=== PATIENT | female | born 1970 | race Caucasian/White ===

== ENCOUNTER 2025-05-13 21:26 | Emergency (ER) | payer OTHER, SELFPAY ==
--- OUTSIDE RECORDS SUMMARY | 2025-05-13 21:29 | XMS_ITS | Clinical Summary ---
Author Organization [facility] Address [address] [place] [address] Care Team Providers Care Vp Research Name Role Phone Luisa Villeda Primary Care Provider [phone] Allergies Active Allergy Reactions Criticality Noted Date Comments Gabapentin Other (see comment) Low 07/27/2018 Weight gain Weight gain Pregabalin Other (see comment) Low 07/27/2018 Weight gain Weight gain Medications ondansetron 4 MG disintegrating tablet Take 1 tablet (4 mg total) by mouth every 8 (eight) hours as needed for Nausea. 20 tablet 10/16/19 Active Additional Information Patient not taking.Reported on 11/05/2021 HYDROcodone-acetam inophen 5-325 MG tabletIndications: Acute Pain < 7 Day Supply Take 1 tablet by mouth every 4 (four) hours as needed. Indications: Acute Pain < 7 Day Supply 20 tablet 10/16/19 22 Active Additional Information Patient not taking.Reported on 11/05/2021 SYMBICORT 160-4.5 MCG/ACT inhaler Inhale 2 puffs into the lungs 2 (two) times a day. 10/08/19 22 Active albuterol sulfate HFA 108 (90 Base) MCG/ACT inhaler Inhale 2 puffs into the lungs every 4 (four) hours as needed for Wheezing or Shortness of breath. 07/08/19 22 Active DULoxetine 60 MG capsule Take 60 mg by mouth 2 (two) times daily. 09/03/19 Active cetirizine 10 MG tablet Take 10 mg by mouth daily. 10/11/19 22 Active simvastatin 40 MG tablet Take 40 mg by mouth nightly. 10/08/19 Active losartan 100 MG tablet Take 100 mg by mouth daily. 09/03/19 Active omeprazole 20 MG capsule Take 20 mg by mouth daily. Active vitamin D3, cholecalciferol, 1000 UNIT Tab tablet Take 1,000 Units by mouth daily. Active fish oil 1000 MG Cap capsule Take 1,000 mg by mouth daily. Active Active Problems Problem Noted Date Diagnosed Date Diverticulitis 11/05/2021 Family History Medical History Relation Comments Heart Disease Mother Hypertension Mother Lupus Mother Relation Status Comments Brother 1 Alive Brother 2 Alive Daughter 1 Alive Daughter 2 Alive Father Mother Alive Son Alive Social History Tobacco Use Types Packs/Day Years Used Date Smoking Tobacco: Heavy Smoker Cigarettes Smokeless Tobacco: Current Alcohol Use Standard Drinks/Week Comments Not Currently 0 (1 standard drink = 0.6 oz pur e alcohol) Comments No Sex and Gender Information Value Date Recorded Sex Assigned at Not on file Legal Sex Female 7:15 PM CDT Gender Identity Not on file Sexual Orientation Not on file Last Filed Vital Signs Vital Sign Reading Time Taken Comments Blood Pressure 119/82 11/07/2021 3:19 PM CDT Pulse 97 11/07/2021 3:19 PM CDT Temperature 36.7 C (98.1 F) 11/07/2021 3:19 PM CDT Respiratory Rate 18 11/07/2021 3:19 PM CDT Oxygen Saturation 98% 11/07/2021 3:19 PM CDT Inhaled Oxygen Concentration - - Weight 111.9 kg (246 lb 11.1 oz) 11/07/2021 5:09 AM CDT Height 165.1 cm (5' 5) 11/05/2021 2:09 AM CDT Body Mass Index 41.05 11/05/2021 2:09 AM CDT Plan of Treatment Health Maintenance Due Date Last Done Comments Colorectal Cancer Screening Colonoscopy (10 Years) 1970 Annual Physical 1973 Hepatitis C 1988 Hepatitis B Vaccines (1 of 3 - 19+ 3-dose series) 1989 Mammogram Screening 2010 Pneumococcal Vaccine: 50+ Years (2 of 2 - PCV) 11/29/2017 11/29/2016 Zoster Vaccines (1 of 2) 2020 COVID-19 Vaccine (2 - season) 2025 03/20/2021 Influenza Adult (#1) 2025 04/27/2019, 06/02/2018, 04/03/2016, Additional history exists DTaP, Tdap and Td Vaccines (2 - Td or Tdap) 04/27/2029 04/27/2019 Hepatitis A Vaccines Aged Out No long er eligible based on patient's age to complete this topic Meningococcal B Vaccine Aged Out No l onger eligible based on patient's age to complete this topic Meningococcal Vaccine Aged Out No sharon nita eligible based on patient's age to complete this topic RSV Immunizations Under 20 Months Aged Out No longer eligible based on patient's age to complete this topic Goals Goal Patient Goal Type Associated Problems Recent Progress Patient-Stated? Author Health - patient able to perform ADLs independently General No Laura Bates, RN Insurance [place] Advance Directives * Full Code (Latest Code Status on File) Date Activated Date Inactivated Comments 11/05/2021 5:23 AM 11/07/2021 8:28 PM Care Teams Vp Research Relationship Specialty Start Date End Date Luisa Villeda PA [address] [place] [address] PCP - General PHYSICIAN CLINICAL SOCIAL WORK AIDE 10/15/21
--- OUTSIDE RECORDS SUMMARY | 2025-05-13 21:29 | XMS_ITS | Encounter Summary ---
Author Organization [facility] Address [address] [place] [address] Care Team Providers Care Bridge Rigger Name Role Phone Luisa Villeda Primary Care Provider [phone] Daniel العراقي MD Unavailable [phone] Rafael Haynes MD Unavailable Encounter Details Date Type Department Care Team (Late st Contact Info) Description 04/10/2025 Results Follow-Up [facility] Family Medicine [address] [place] [address] Luisa Villeda PA [address] [place] [address] Uric acid, XR Chest Pa Lateral 2 Views Social History Tobacco Use Types Packs/Day Years Used Date Smoking Tobacco: Some Days Cigarettes 0.5 30 Smokeless Tobacco: Never Comments:Started smoking at age 13 1-2 currently heaviest ppd hx one pack Alcohol Use Standard Drinks/Week Comments Never 0 (1 standard drink = 0.6 oz pur e alcohol) [facility] Utilities Answer Date Recorded In the past 12 months has [employer], gas, oil, or water company threatened to shut off services in your home? No 12/20/2023 Social Connection and Isolation Panel Answer Date Recorded In a typical week, how many times do you talk on the phone with family, friends, or neighbors? More than three times a week 12/20/2023 How often do you get togethe r with friends or relatives? More than three times a week 12/20/2023 How often do you attend chur ch or holiness services? Never 12/20/2023 Do you belong to any clubs o r organizations such as moravian groups, unions, fraternal or athletic groups, or school groups? No 12/20/2023 How often do you attend meet ings of the clubs or organizations you belong to? Never 12/20/2023 Are you , , di vorced, , never , or living with a partner? Never 12/20/2023 Overall Financial Resource Strain (CARDIA) Answe r Date Recorded How hard is it for you to pa y for the very basics like food, housing, medical care, and heating? Not hard at all 12/20/2023 PHQ-2 Answer Date Recorded PHQ-2 Total Score (If total score is 3 or more points, staff should administer the PHQ-9) 0 04/05/2025 Hunger Vital Sign Answer Date Recorded Within the past 12 months, y ou worried that your food would run out before you got the money to buy more. Never true 12/20/19 24 Within the past 12 months, t he food you bought just didn't last and you didn't have money to get more. Never true 12/20/2023 PRAPARE - Transportation Answer Date Re corded In the past 12 months, has l ack of transportation kept you from medical appointments or from getting medications? No 12/03 In the past 12 months, has l ack of transportation kept you from meetings, work, or from getting things needed for daily living? No 12/20/2023 Housing Stability Vital Sign Answer Aubrey e Recorded In the last 12 months, was t here a time when you were not able to pay the mortgage or rent on time? No 08/27/2022 Number of Places Lived in the Last Year Not on f ile 08/27/2022 In the last 12 months, was t here a time when you did not have a steady place to sleep or slept in a nursing home (including now)? No 08/27/2022 PHQ-9 Answer Date Recorded PHQ-9 Total Score 17 12/27/2023 Housing Stability Vital Sign Answer Aubrey e Recorded In the last 12 months, was t here a time when you were not able to pay the mortgage or rent on time? No 12/20/2023 In the past 12 months, how m any times have you moved where you were living? 0 12/20/2023 At any time in the past 12 m [facility], were you homeless or living in a nursing home (including now)? No 12/20/2023 AUDIT-C Answer Date Recorded Q1: How often do you have a drink containing alcohol? Never 04/10/2025 Q2: How many drinks containi ng alcohol do you have on a typical day when you are drinking? Patient does not drink Q3: How often do you have si x or more drinks on one occasion? Never 04/10/2025 Personal Safety Answer Date Recorded Have you ever been in or are you currently in a harmful physical or emotional relationship or is someone making you feel afraid or unsafe? Denies 03/29/2025 Comments No Sex and Gender Information Value Date Recorded Sex Assigned at Not on file Legal Sex Female 2:19 AM TELEHEALTH NURSE Gender Identity Not on file Sexual Orientation Not on file documented as of this encounter Functional Status * Pina Fall Risk Question Answer Date of Assessment Author History of Falling 0 04/10/2025 10:58 AM CD T Hilda Godoy RN Secondary Diagnosis 15 04/10/2025 10:58 AM Hilda Cheung, mcat instructor Aids 0 04/10/2025 10:58 AM Hilda Garcia RN Intravenous Therapy/Heparin/Saline Lock 0 04/10/2025 10:58 AM Hilda Toscano RN Gait/Transferring 0 04/10/2025 10:58 AM Hilda Toscano RN Mental Status 0 04/10/2025 10:58 AM CDT Hilda Cervantes RN Pina Fall Risk Score (Score >= 45 places fall precaution order) 15 04/10/2025 10:58 AM Hilda Toscano RN Prior Fall Event (Autopopulated from EMR) None found 04/10/2025 10:58 AM RODRIGUEZT Dave Godoy RN * AUDIT-C Score Answer Date of Assessment Author 0 04/10/2025 11:15 AM CDT Meurer, Hilda B., RN * Alcohol Use Question Answer Date of Assessment Author Q1: How often do you have a drink containing alcohol? Never 04/10/2025 11:15 AM CDT Hilda Godoy, DAIJA Q2: How many drinks containing alcohol do you have on a typical day when you are drinking? Patient does not drink 04/10/2025 11:15 AM RODRIGUEZT Hilda Godoy, DAIJA Q3: How often do you have six or more drinks on one occasion? Never 04/10/2025 11:15 AM CDT Hilda Godoy, DAIJA documented as of this encounter Plan of Treatment Upcoming Encounters Date Type Department Care Team (Late st Contact Info) Description 06/05/2025 8:00 AM TELEHEALTH NURSE Hospital Encounter [facility] [address] [place] [id number] Paula Lugo MD [address] [place] [address] [phone] 06/05/2025 8:00 AM TELEHEALTH NURSE - 06/05/2025 8:30 AM TELEHEALTH NURSE Surgery [facility] [address] [place] [id number] Paula Lugo MD [address] [place] [address] [phone] COLONOSCOPY Scheduled Procedures Name Priority Associated Diagnoses Date/Ti me COLONOSCOPY hx of polyps 06/05/2025 8:00 AM TELEHEALTH NURSE documented as of this encounter Visit Diagnoses Not on filedocumented in this encounter Care Teams Bridge Rigger Relationship Specialty Start Date End Date Luisa Villeda PA [address] [place] [address] PCP - General Internal Medicine 07/08/21 Daniel العراقي MD [address] [place] [id number] Consulting Physician General Surgery 04/17/25 [place] [address] [place] [id number] Referring Physician Cardiology 04/18/25 documented as of this encounter
--- OUTSIDE RECORDS SUMMARY | 2025-05-13 21:29 | XMS_ITS | Clinical Summary ---
Author Organization [facility] Address [address] [place] [address] Phone Care Team Providers Care Senior Oracle Applications Developer Name Role Phone GarthNaomi APRN, JAMILAH Primary Care Provider Allergies Active Allergy Reactions Criticality Noted Date Comments Gabapentin Other (see Comments) 07/27/2018 Weight gain Pregabalin Other (see Comments) 07/27/2018 Weight gain Penicillins Unknown 05/16/2016 Medications simvastatin (ZOCOR) 20 MG Tablet Take 20 mg by mouth every evening. Active hyoscyamine (LEVSIN) 0.125 MG Tablet Take 1 Tab by mouth every 4 hours as needed for Cramping. 60 Tab 2 7 Active omeprazole (PRILOSEC) 20 MG CAPSULE DELAYED RELEASE Take 1 Cap by mouth daily. 90 Cap 7 Active albuterol (ACCUNEB) 0.63 MG/3ML Nebulizer Soln 0.63 mg by Nebulization route every 4 hours as needed for Wheezing. Active cetirizine (ZYRTEC) 10 MG Tablet Take 10 mg by mouth daily. Active Albuterol Sulfate (VENTOLIN HFA IN) take by inhalation every 4 hours as needed. Active Acetaminophen (TYLENOL PO) Take 500 mg by mouth every 4 hours as needed. Active DULOXETINE HCL PO Take 90 mg by mouth daily. Active traMADol (ULTRAM) 50 MG Tablet Take 1 Tab by mouth 2 times daily as needed for Moderate or more severe pain. 30 Tab 9 Active BuPROPion HCl 200 MG TABLET SR 12 HR Take 200 mg by mouth daily. Active losartan (COZAAR) 100 MG Tablet Take 100 mg by mouth every morning. Active acyclovir (ZOVIRAX) 800 MG Tablet Take 800 mg by mouth daily. Active Active Problems Problem Noted Date Diagnosed Date Sacroiliac joint dysfunction of both sides 03/09 Moderate episode of recurrent major depressive d isorder 09/01/2018 Sacroiliac joint dysfunction of right side 07/27 Diverticulitis of colon 12/01/2016 Depression 11/28/2016 Metabolic acidosis, increased anion gap 11/29/19 17 Benign essential HTN 11/28/2016 Familial hypercholesterolemia 11/28/2016 Diverticulitis of large inte jef without perforation or abscess without bleeding 11/28/2016 Immunizations Immunization Administration Dates Next Due Pneumococcal Vaccine Adult - 23 Valent 7 Family History Medical History Relation Name Comments Cancer Brother bone No Known Problems Father Cancer Maternal Aunt breast Kidney Stones Maternal Uncle Heart Disease Mother Relation Name Status Comments Brother Father Maternal Aunt Maternal Uncle Mother Alive Social History Tobacco Use Types Packs/Day Years Used Date Smoking Tobacco: Every Day Cigarettes 1 30 Smokeless Tobacco: Never Tobacco Cessation:Ready to Q uit: No; Counseling Given: Yes Alcohol Use Standard Drinks/Week Comments No 0 (1 standard drink = 0.6 oz pur e alcohol) Sexually Active Control Partners Comments Never Comments No Sex and Gender Information Value Date Recorded Sex Assigned at Not on file Legal Sex Female 8:50 PM CDT Gender Identity Not on file Sexual Orientation Not on file Last Filed Vital Signs Vital Sign Reading Time Taken Comments Blood Pressure 107/67 12/18/2020 9:27 AM CDT Pulse 86 12/18/2020 9:27 AM CDT Temperature 36 C (96.8 F) 12/18/2020 9:27 AM CDT Respiratory Rate 18 12/18/2020 9:27 AM CDT Oxygen Saturation 97% 12/18/2020 9:27 AM CDT Inhaled Oxygen Concentration - - Weight 108.9 kg (240 lb) 12/06/2020 1:00 PM CDT Height 166.4 cm (5' 5.5) 12/06/2020 1:00 PM CDT Body Mass Index 39.33 12/06/2020 1:00 PM CDT Plan of Treatment Health Maintenance Due Date Last Done Comments Hepatitis C Virus (HCV) Screening 1970 Hepatitis B Immunization (1 of 3 - 19+ 3-dose series) 1989 Cologuard 2015 Immunochemical Fecal Occult Blood 2015 Pneumococcal Immunization (50+ years) (2 of 2 - PCV) 11/29/2017 11/29/2016 Zoster Immunization (1 of 2) 2020 Colonoscopy 12/19/2023 12/18/2020, 07/07/2017 Colorectal Cancer Screening 12/19/2023 Influenza Immunization (#1) 03/05/202504/05, 06/02/2018, 04/03/2016, Additional history exists SARS-COV-2 Immunization (2 - 2024- season) 2025 03/20/2021 Respiratory Syncytial Virus (RSV) Immunization (Adult) (1 - 1-dose 75+ series) 2045 Pneumococcal Immunization Combined Discontinued 11/29/2016 DTaP/Tdap/Td Immunization Discontinued 04/27/2019 TdaP Immunization Completed 04/27/2019 Human Papillomavirus (HPV) Immunization Aged Out No longer eligible based on patient's age to complete this topic Meningococcal Immunization (ACWY) Aged Out No longer eligible based on patient's age to complete this topic Rotavirus Immunization Aged Out No lo nger eligible based on patient's age to complete this topic Medical Devices Implanted Type Area Svp Group Director Device Identifier Shelf Expiration Date Model / Serial / Lot Clip 235cm 11mm 360 Resolution Radiopaque - [id number] Implanted:Qty: 3 on 12/18/2020 by Ajit Wang DO at [facility] IMPLANT [employer] 08/30/2023 [id number] / [id number] / [id number] Insurance MEDICAID [employer] Advance Directives * Full Code (Latest Code Status on File) Date Activated Date Inactivated Comments 11/28/2016 10:05 AM 11/29/2016 1:51 PM CPR-Full Tr eatment: FULL ARREST: Attempt Resuscitation/CPR wit intubation and mechanical ventilation. PRE-ARREST: Use entire range of life support measures to stabilize the patient. Care Teams Senior Oracle Applications Developer Relationship Specialty Start Date End Date Naomi Liang APRN, RETAIL CUSTOMER SERVICE REPRESENTATIVE [address] [place] [address] PCP - General Advanced Practice Nurse 12/15/20
--- OUTSIDE RECORDS SUMMARY | 2025-05-13 21:29 | XMS_ITS | Clinical Summary ---
Author Organization [facility] Address [address] [place] [address] Care Team Providers Care Tubing Supervisor Name Role Phone Luisa Villeda Primary Care Provider [phone] Daniel العراقي MD Unavailable [phone] Rafael Haynes MD Unavailable Allergies Active Allergy Reactions Criticality Noted Date Comments Gabapentin Other (See comments) Low 07/27/2018 Weight Gain Penicillins Unknown Low 05/16/2016 Allergy as a child. Unknown reaction. Has taken Penicillin as an adult and tolerated well. Pregabalin Other (See comments) Low 07/27/2018 Weight Gain Medications albuterol HFA (PROVENTIL HFA,VENTOLIN HFA,PROAIR HFA) 90 mcg/actuation inhaler Inhale 2 puffs every 4 (four) hours as needed for wheezing 1 each 3 01/17/20 22 Active nitroglycerin (NITROSTAT) 0.4 mg SL tabletIndicatio ns:acute episode of anginal pain Place 1 tablet (0.4 mg total) under the tongue every 5 (five) minutes as needed for chest pain May repeat dose q 5 min, up to 3 doses total 30 tablet 05/05/20 22 Active ondansetron (ZOFRAN) 4 mg tablet Take 1 tablet (4 mg total) by mouth every 8 (eight) hours as needed for nausea or vomiting 20 tablet 09/13/19 25 Active cetirizine (ZyrTEC) 10 mg tablet Take 1 tablet (10 mg total) by mouth daily 100 tablet 1 09/13/19 25 Active magnesium gluconate (MAGONATE) 500 mg (27 mg elemental) tablet Take 1 tablet (500 mg total) by mouth daily 90 tablet 1 09/13/19 25 Active Additional Information Patient taking differently:500 mg oral2 times daily, Informant: Self, Reported on 05/09/2025 metoprolol XL (TOPROL-XL) 50 mg extended release tabletIndicatio ns:Benign essential HTN TAKE 1 TABLET(50 MG) BY MOUTH DAILY 90 tablet 1 12/12/19 25 Active nicotine (NICODERM CQ) [address] 1 patch on the skin daily for 24 hours 28 patch 1 12/26/[address] (PROTONIX) 40 mg EC tabletIndicatio ns:Gastroesopha geal reflux disease without esophagitis Take 1 tablet (40 mg total) by mouth daily 90 tablet 1 03/19/[address] (CYMBALTA) 60 mg capsule Take 2 capsules (120 mg total) by mouth daily Active ezetimibe (ZETIA) 10 mg tablet Take 1 tablet (10 mg total) by mouth daily Active fluticasone propionate (FLONASE) 50 mcg/actuation nasal spray Administer 2 sprays into each nostril daily Active valACYclovir (VALTREX) 1 gram tablet Take 1 tablet (1,000 mg total) by mouth daily Active aspirin 81 mg chewable tabletIndicatio ns:Benign essential HTN CHEW AND SWALLOW 1 TABLET(81 MG) BY MOUTH DAILY 90 tablet 1 04/13/20 25 Active oxyCODONE-aceta minophen (PERCOCET) 5-325 mg per tabletIndicatio ns:Pain Take 1 tablet by mouth every 6 (six) hours as needed for pain 20 tablet 04/17/20 25 Active HYDROcodone-benedict taminophen (NORCO) 5-325 mg per tabletIndicatio ns:Pain Take 1 tablet by mouth every 6 (six) hours as needed for pain 10 tablet 04/18/20 25 Active ipratropium-alb uteroL (DUO-NEB) 0.5-2.5 mg/3 mL nebulizer solution Take 3 mL by nebulization every 6 (six) hours as needed for wheezing 180 mL 1 04/18/20 25 Active budesonide-form oteroL (SYMBICORT) 160-4.5 mcg/actuation inhaler Inhale 2 puffs 2 (two) times a day Rinse mouth with water after use. Do not swallow. 1 each 1 04/18/20 Active albuterol 2.5 mg /3 mL (0.083 %) nebulizer solution USE 1 VIAL VIA NEBULIZER FOUR TIMES DAILY NEEDED FOR WHEEZING OR SHORTNESS OF BREATH 300 mL 07/22/19 025 Discontinu ed(Stop Taking at Discharge) predniSONE (DELTASONE) 20 mg tablet Take 2 tablets (40 mg) by mouth daily for 3 days 6 tablet 04/19/20 025 Active Problems Patient Care Coordination No te Formatting of this note migh t be different from the original. CAD for BIC Problem Noted Date Diagnosed Date Personal history of tobacco use 05/09/2025 Assessment & Plan (05/09/2025 10:52 AM CLEANER AND DYER): The patient has a 40 pack-year history of smoking and is agreeable to proceed with a screening chest CT. She will follow up here in 2 months. Dyspnea on exertion 05/09/2025 Assessment & Plan (05/09/2025 10:52 AM CLEANER AND DYER): The patient is having shortness of breath with exertion. I will check full PFTs with a 6 minute walk test. She may have underlying COPD. COPD exacerbation 04/17/2025 Hypoxia 04/17/2025 Morbid obesity 04/05/2025 Controlled type 2 diabetes m ellitus without complication, without long-term current use of insulin 12/25/2024 Hypertension associated with diabetes 12/25/2024 Umbilical hernia without obstruction and without gangrene 12/25/2024 Encounter for screening invo ing social determinants of health (SDoH) 09/24/2024 Assessment & Plan (09/24/2024 10:20 PM CDT): Patient has multiple factors affecting her health. Currently she is homeless. She has financial issues she is grieving with mental health concerns. She has a follow up scheduled with her psychiatrist. Provided information to hopefully help her with housing and needs. Also provided information on [place] legal assistance. If there is other things that we can help her with she may call at any time. Mental health disorder 06/04/2024 Assessment & Plan (09/24/2024 10:11 PM CDT): Patient has mental health concerns. Continue per Psychiatry Assessment & Plan (06/25/2024 10:54 PM CLEANER AND DYER): Continue per Dr. Hinojosa. She was instructed to start all of her mental health medications up so currently doing the Paxil, Cymbalta, Seroquel and has follow- up with Dr. Hinojosa in the near future. If she has any further symptoms she is to call Dr. Hinojosa's office her reach out to us. She verbalizes understanding Assessment & Plan (06/04/2024 9:19 PM CLEANER AND DYER): Patient is stopped all of her medications including her mental health medications. She sees a psychiatrist, saw her yesterday, but did not tell her she stopped all of her meds. She has suicidal ideations and thoughts of self-harm although not an exact plan. She is not happy with her medications and isn't wanting to restart them. I asked if she felt like her symptoms require immediate evaluation with possible hospitalization and she said yes. Called her son who I did speak to on the phone and explained the situation and he plans to come and pick her up and transport her to [facility] for evaluation and determination immediate care needs for her mental health concerns. History of colon polyps 03/03/2024 Assessment & Plan (03/03/2024 10:05 AM CDT): Colonoscopy by Dr. Wang December 2020 with multiple tubular adenomas, extensive left-sided diverticulosis, and internal hemorrhoids. Repeat colonoscopy 04/[address] Lugo with 1cm polyp in cecum removed with hot biopsy and diverticulosis. Patient had sigmoid colon resection for diverticulitis by Dr. Lugo August 2022. -repeat colonoscopy April 2025 Anemia 12/27/2023 Assessment & Plan (01/09/2024 8:34 PM CDT): Continue to monitor readings. Cigarette smoker 12/27/2023 Assessment & Plan (06/04/2024 9:20 PM CLEANER AND DYER): Encouraged smoking cessation. Discussed 3 minutes. Reviewed options for assistance with cessation. Reviewed extermination supervisor sequela associated with smoking. Pt declines assistance at this time but may contact the office at anytime for further help as they desire. Assessment & Plan (01/09/2024 8:34 PM CDT): Encouraged smoking cessation. Discussed 3 minutes. Reviewed options for assistance with cessation. Reviewed extermination supervisor sequela associated with smoking. Pt declines assistance at this time but may contact the office at anytime for further help as they desire. Nicotine abuse 12/20/2023 Chronic anemia 12/20/2023 Metabolic syndrome 12/20/2023 Anxiety 12/20/2023 Panic attack 12/20/2023 Acute cystitis without hematuria 12/20/2023 Hypokalemia 12/20/2023 Cellulitis of lower extremity, unspecified later ality 12/19/2023 Assessment & Plan (01/09/2024 8:33 PM CDT): Cellulitis continues to improve. She is taking her doxycycline and knows the importance of completing a 7 day course. Reviewed signs and symptoms of recurrence and she is to follow up immediately if that would occur Dysphagia 08/04/2023 Assessment & Plan (03/03/2024 10:04 AM CDT): Intermittent dysphagia to solids and pills for this past 6 months, occurs once a week, drinks water to push the food down, getting progressively worse. -schedule EGD -The risks (risks of bleeding, infection, perforation requiring surgery, missed polyps/cancer, dental injury, aspiration pneumonia, anesthesia complications such as drug reaction and cardiopulmonary complications including rare chance of ), benefits, and alternatives of the planned procedure were explained to the patient who understands and consents to having procedure done. Assessment & Plan (08/04/2023 11:37 AM CLEANER AND DYER): Patient has noticed increased dysphagia with solids like meats and breads. She states she can feel something like a flap inside and she is concerned that there is a problem. Will refer to Dr. Noyola at [facility] for further evaluation and probable scope Acute cough 08/04/2023 Assessment & Plan (08/04/2023 11:37 AM CLEANER AND DYER): Patient had an acute cough over the last week. This has resolved and has turned into what sounds like possible prodrome prior to HSV outbreak. COVID, flu a and B were all negative. Exam is completely benign. Will aggressively treat the HSV and see if all of her symptoms fully resolve. HSV (herpes simplex virus) anogenital infection 08/04/2023 Assessment & Plan (08/04/2023 11:38 AM CLEANER AND DYER): Patient has been on acyclovir 400 mg b.i.d. for suppression. She has an outbreak and has tried increasing with her supply at home but is not getting any improvement. Will have her increase to 400 t.i.d. for the next month and then return back to the b.i.d. dosing. New prescription sent to pharmacy Akathisia 03/26/2023 Assessment & Plan (03/26/2023 2:46 PM CDT): Patient is noting the need to move since starting the Abilify. She is done really well with the Abilify from the asked if some control but just has noticed this. He is not restless leg it is not a tardive dyskinesia it is just that sensation that she does not want to sit still she wants to get up in and move. Suspect this is akathisia due to the Abilify. She is already on a beta-caren so discussed that many times it will settle down the longer she is on the medicine. Follow-up with her in a few weeks to a month and see if things are settling down if not may see if we can increase the BB or change. YENIFER (obstructive sleep apnea) 07/26/2022 Assessment & Plan (05/09/2025 10:51 AM CLEANER AND DYER): The patient was originally diagnosed with obstructive sleep apnea in early 2021. She lost her CPAP unit about 2 years ago when she had to move suddenly. I have recommended proceeding with a nocturnal polysomnogram with a split night protocol if necessary and no MSLT. Assessment & Plan (06/01/2023 3:53 PM CLEANER AND DYER): Continue CPAP has all her needed supplies Coronary artery disease 05/05/2022 Assessment & Plan (07/26/2022 7:55 PM CLEANER AND DYER): Continue per Dr. Haynes. She will need cardiac clearance for her procedure Chest pain, unspecified type 03/31/2022 COVID-19 02/02/2022 Assessment & Plan (02/02/2022 5:09 PM CDT): She will discontinue buspar, flonase, and simvastatin while taking the paxlovid. Advised tylenol 500mg q6h prn headache. Advised reporting to the er if symptoms worsen. Acute intractable headache 02/02/2022 Assessment & Plan (02/02/2022 5:09 PM CDT): She will discontinue buspar, flonase, and simvastatin while taking the paxlovid. Advised tylenol 500mg q6h prn headache. Advised reporting to the er if symptoms worsen. Nausea 02/02/2022 Assessment & Plan (02/02/2022 5:09 PM CDT): She will discontinue buspar, flonase, and simvastatin while taking the paxlovid. Advised tylenol 500mg q6h prn headache. Advised reporting to the er if symptoms worsen. Abnormal EKG 01/16/2022 Assessment & Plan (01/25/2022 12:33 PM CDT): In next plan Patient has been noting chest pain especially while at work with activity. EKG in the office today showed abnormal changes. Will refer to cardiology for further evaluation. It notified patient if she would have acute chest pain that is increasing or syncopal type episode she is immediately to go to the ER. She voiced understanding and agrees with the plan 85bpm Normal sinus rhythm Left axis deviation Possible anterior infarct, age undetermined Abnormal EKG. BMI 40.0-44.9, adult 08/19/2021 Assessment & Plan (04/05/2025 1:21 PM CDT): Discussed the patient's BMI. The BMI is above average. BMI management plan is completed. BMI Follow-up includes: nutrition counseling, exercise counseling and education provided. Assessment & Plan (12/25/2024 8:06 AM CDT): Discussed the patient's BMI. The BMI is above average. BMI management plan is completed. BMI Follow-up includes: nutrition counseling, exercise counseling and education provided. Assessment & Plan (09/12/2024 11:26 AM CDT): Discussed the patient's BMI. The BMI is above average. BMI management plan is completed. BMI Follow-up includes: nutrition counseling, exercise counseling and education provided. Assessment & Plan (08/19/2021 1:19 PM CLEANER AND DYER): Obesity is unchanged. Discussed the patient's BMI. The BMI is above average. BMI management plan is completed. BMI Follow-up includes: nutrition counseling, exercise counseling and education provided. Snoring 08/12/2021 Assessment & Plan (09/13/2021 12:59 PM CLEANER AND DYER): Awaiting recommendations from Sleep Medicine Assessment & Plan (08/12/2021 1:39 PM CLEANER AND DYER): The patient presents with snoring and daytime hypersomnia. I have recommended proceeding with a nocturnal polysomnogram with a split night protocol if necessary and no MSLT. She will follow-up here in 3 months. Moderate persistent asthma without complication 08/12/2021 Assessment & Plan (08/12/2021 1:40 PM CLEANER AND DYER): The patient is currently using albuterol in the nebulizer 2 times per day. I will start Breo 1 puff daily and check full PFTs followed by a methacholine challenge if necessary as well as a chest x-ray. Mouth ulcers 07/20/2021 Assessment & Plan (07/20/2021 6:13 PM CLEANER AND DYER): Patient has had mouth ulcers. States she has been treated with antiviral acyclovir for decades. She ran out 12 days ago and has not had any outbreaks . States prior to that she did have quite a few times where she will have mouth ulcers. Again she has never been worked up for an autoimmune condition. If HSV is not convincing will continue to pursue an autoimmune underlying cause. Chronic bilateral low back pain without sciatica 07/20/2021 Assessment & Plan (07/20/2021 6:13 PM CLEANER AND DYER): Per patient history chronic bilateral back pain. She is following with pain management. Will be extremely cautious with using any type of narcotics due to her abuse history. History of drug abuse in remission 07/20/2021 Overview (07/20/2021): Last used cocaine approx 2004 -- clean since Has abused vicodin, not currently taking, working with pain management Assessment & Plan (08/04/2023 11:36 AM CLEANER AND DYER): Last used cocaine in 2004. Has has a history of narcotic abuse but has not needed any prescriptive at this point. Using Cymbalta and other non drug medications for management. Assessment & Plan (01/26/2023 5:34 PM CDT): Last used cocaine approx 2004 -- clean since Has abused vicodin, not currently taking, working with pain management Assessment & Plan (07/26/2022 7:54 PM CLEANER AND DYER): Patient with history of drug abuse. Continues to remain drug-free. Involved in NA in AA. Assessment & Plan (04/19/2022 12:09 AM CDT): Patient continues to work diligently at remaining clean. Discussed her brother coming home and if this is going to be a trigger encouraged to try to fall and alternative living situation. Provided information regarding housing with [place] in [facility] and [facility]. She also has good support with her [employer] groups. Assessment & Plan (07/20/2021 6:14 PM CLEANER AND DYER): Patient states has history of drug abuse with cocaine as well as Vicodin. Has been clean the cocaine since 2004. Will be very cautious with any type of narcotic or addictive medicine due to her history. She is in agreement with this. Vitamin D deficiency 07/20/2021 Assessment & Plan (07/20/2021 6:14 PM CLEANER AND DYER): Supplement Fatigue 07/20/2021 Assessment & Plan (06/01/2023 3:53 PM CLEANER AND DYER): Probably multifactorial. Check labs and followup to re-evaluate Assessment & Plan (01/26/2023 5:34 PM CDT): Probably multifactorial. Check labs and followup to re-evaluate Assessment & Plan (04/19/2022 12:09 AM CDT): Probably multifactorial. Check labs and followup to re-evaluate Assessment & Plan (02/02/2022 5:09 PM CDT): She will discontinue buspar, flonase, and simvastatin while taking the paxlovid. Advised tylenol 500mg q6h prn headache. Advised reporting to the er if symptoms worsen. Assessment & Plan (07/20/2021 6:14 PM CLEANER AND DYER): Probably multifactorial. Check labs and followup to re-evaluate Breast cancer screening by mammogram 07/20/2021 Assessment & Plan (01/09/2024 8:32 PM CDT): Mammogram provided Assessment & Plan (07/26/2022 7:54 PM CLEANER AND DYER): Mammogram order provided Assessment & Plan (07/20/2021 6:14 PM CLEANER AND DYER): Mammogram order provided Type 2 diabetes mellitus with hyperlipidemia 10/2021 Assessment & Plan (09/24/2024 10:11 PM CDT): Encouraged patient to follow low fat/low chol diet like the Mediterranean diet. Increase good fats in the diet. Increase exercise. Monitor labs as needed. Continue Zetia Assessment & Plan (06/25/2024 10:53 PM CLEANER AND DYER): Encouraged patient to follow low fat/low chol diet like the Mediterranean diet. Increase good fats in the diet. Increase exercise. Monitor labs as needed. Unable to tolerate a statin. Continue Zetia Assessment & Plan (01/09/2024 8:32 PM CDT): Encouraged patient to follow low fat/low chol diet like the Mediterranean diet. Increase good fats in the diet. Increase exercise. Monitor labs as needed. Patient is currently holding statin Is now on Repatha Assessment & Plan (08/04/2023 11:34 AM CLEANER AND DYER): Encouraged patient to follow low fat/low chol diet like the Mediterranean diet. Increase good fats in the diet. Increase exercise. Monitor labs as needed. Continue pravastatin 40 Assessment & Plan (06/01/2023 3:53 PM CLEANER AND DYER): Encouraged patient to follow low fat/low chol diet like the Mediterranean diet. Increase good fats in the diet. Increase exercise. Monitor labs as needed. Continue Pravachol 20 Assessment & Plan (03/26/2023 2:46 PM CDT): Encouraged patient to follow low fat/low chol diet like the Mediterranean diet. Increase good fats in the diet. Increase exercise. Monitor labs as needed. Continue statin Assessment & Plan (01/26/2023 5:33 PM CDT): Encouraged patient to follow low fat/low chol diet like the Mediterranean diet. Increase good fats in the diet. Increase exercise. Monitor labs as needed. Continue Crestor 20 Assessment & Plan (07/26/2022 7:53 PM CLEANER AND DYER): Encouraged patient to follow low fat/low chol diet like the Mediterranean diet. Increase good fats in the diet. Increase exercise. Monitor labs as needed. Continue statin Assessment & Plan (04/19/2022 12:08 AM CDT): Encouraged patient to follow low fat/low chol diet like the Mediterranean diet. Increase good fats in the diet. Increase exercise. Monitor labs as needed. Continue statin Assessment & Plan (01/25/2022 10:30 AM CDT): Encouraged patient to follow low fat/low chol diet like the Mediterranean diet. Increase good fats in the diet. Increase exercise. Monitor labs as needed. Continue simvastatin 40 Assessment & Plan (09/13/2021 12:55 PM CLEANER AND DYER): Encouraged patient to follow low fat/low chol diet like the Mediterranean diet. Increase good fats in the diet. Increase exercise. Monitor labs as needed. Continue statin Assessment & Plan (07/20/2021 6:09 PM CLEANER AND DYER): Insert lipid. Continue simvastatin 40 mg Gastroesophageal reflux disease without esophagi tis 07/08/2021 Assessment & Plan (03/03/2024 10:05 AM CDT): Chronic GERD, well-controlled with omeprazole 20 mg p.o. daily. -continue omeprazole 20 mg p.o. daily -RECOMMENDATIONS given include: anti-reflux maneuvers, Avoid acidic foods like oranges and tomatoes., avoidance of spicy foods, avoid eating 3-4 hours before bed, elevation of the head of the bed, and weight loss Assessment & Plan (07/26/2022 7:53 PM CLEANER AND DYER): Continue PPI Assessment & Plan (01/25/2022 10:31 AM CDT): Discussed GERD at length including anatomy, behavioral changes (raise HOB, meal timings), dietary changes and medication options. Reviewed risks, benefits alternatives, side effects and proper use. Followup if sxs worsen or has hematochezia or hematemeis. Continue omeprazole 20. May increase to 40 if symptoms increase. Assessment & Plan (09/13/2021 12:57 PM CLEANER AND DYER): Continue PPI Assessment & Plan (07/20/2021 6:09 PM CLEANER AND DYER): Continue PPI Seasonal allergies 07/08/2021 Assessment & Plan (07/20/2021 6:09 PM CLEANER AND DYER): Continue current regimen of Zyrtec Flonase and albuterol p.r.n. Adenomatous polyp 07/08/2021 Overview (07/08/2021): 12/2020 -- Dr. Wang Assessment & Plan (07/20/2021 6:12 PM CLEANER AND DYER): Addendum is polyp from [address] Wang. Will request a report to determine follow-up but suspect will not be more than 3-5 years. Moderate episode of recurrent major depressive d isorder 09/01/2018 Assessment & Plan (01/09/2024 8:31 PM CDT): Continue per Psychiatry Dr. Hinojosa. Continue Paxil 30 Seroquel Assessment & Plan (08/04/2023 11:35 AM CLEANER AND DYER): Patient has depression symptoms and I suspect hypomania. She has been on Cymbalta and Abilify. Mobile like the Abilify 10 was too much so decreased it to 5 on her own. Still is unsure how it is working for her. Recommend referral to psychiatry for further evaluation and definitive diagnosis for treatment. Provided names of providers in the area that she can call to schedule at her convenience. She denies any suicidal or homicidal . Assessment & Plan (06/01/2023 3:52 PM CLEANER AND DYER): Symptoms continue improve with the Cymbalta Abilify combination. She still feels like there is room for some improvement so will increase the Abilify to 7.5 mg. She may take 1-1/2 tablets of her 5 mg tablets and will send out a new prescription. Follow-up in the 2-3 months to reassess or sooner for any other problems or concerns Assessment & Plan (01/26/2023 5:35 PM CDT): Patient has tolerated the Cymbalta 60 mg 2 tablets daily with good control of mood and pain in the past. Last few months though she is had many more down times. Not rotating through with the higher times. It is tried Wellbutrin in the past without significant improvement. Not willing to give up the Cymbalta as it really does help with her pain. Discussed options including Abilify 5 mg to see if we can augment and stabilize her symptoms. Reviewed risks benefits alternatives side effects and proper use. New prescription sent to pharmacy. Will follow-up in 6 weeks to reassess or sooner for any other problems or concerns. Patient denies any suicidal or homicidal thoughts Assessment & Plan (07/26/2022 7:53 PM CLEANER AND DYER): Continue Cymbalta 60 b.i.d. Assessment & Plan (04/19/2022 12:09 AM CDT): Increase BuSpar to 15 mg t.i.d.. Encouraged to call if has increased symptoms. Assessment & Plan (01/25/2022 12:32 PM CDT): Patient is under a lot of stress. She is currently homeless. Living with her mom but may end up in a nursing home and looking for her own home. Patient has been taking 60 mg b.i.d. with Cymbalta for a while. She states she felt the improvement by increasing. Advises is the max dose . Will start BuSpar 5 mg t.i.d. reviewed risks benefits alternatives side effects and proper use. Follow-up in 6 weeks to reassess Assessment & Plan (09/13/2021 12:58 PM CLEANER AND DYER): Continue Cymbalta 60. Will continue to monitor her depression symptoms. Assessment & Plan (07/20/2021 6:11 PM CLEANER AND DYER): Patient has done well with Cymbalta 30 mg but definitely feels like there is room for improvement. Will go ahead and increase to 60 mg. She may take 2 of her 30 mg tablets to make the 60 mg until the supplies done. Will send a new prescription for 60 mg tablets to take 1 daily. Sacroiliac joint dysfunction of both sides 07/27 Diverticulitis of colon 11/28/2016 Assessment & Plan (10/04/2022 6:41 PM CDT): Status post sigmoid colon resection. Had bleeding to the anastomosis site and required 2nd OR visit. She is recovered well Resolved Problems Problem Noted Date Diagnosed Date Resolved Date Acute respiratory failure with hypoxia 04/17/2025 04/17/2025 Homeless 09/24/2024 09/24/2024 Acute recurrent frontal sinusitis 06/04/2024 06/25/2024 Assessment & Plan (06/04/2024 9:20 PM CLEANER AND DYER): Patient states she was treated for a sinusitis but also has a lot of dental concerns. She has not set an appointment with a dentist. She just finished a short course of Augmentin and a steroid. Unsure if this is helped her symptoms. She may benefit from an extension of the antibiotic but because I am sending her to the ER for mental health evaluation will hold off sending out any by antibiotics at this point. Will follow-up after her mental health issues have been addressed and determine plan concerning this. Patient verbalizes understanding and is in agreement with the plan Stressed regardless she needs to set up with a dentist for evaluation and care to avoid long-term sequela can result from poor dental care Hypertension, essential 12/27/202309/03 Assessment & Plan (06/04/2024 9:17 PM CLEANER AND DYER): Encouraged patient to restart all of her cardiac meds. She has been on metoprolol and losartan. Patient states she did not tolerate a statin so she is trying to get on a PCSK9 but unsure of where we are with coverage. Has not seen Dr. Escamilla in follow- up. He has now relocated. She will be going to the ER for evaluation of her mental health concerns and will have her follow back up to readdress the cholesterol medication concerns. Assessment & Plan (01/09/2024 8:30 PM CDT): Bp is stable/in acceptable range for any co-morbidities. Encouraged to limit sodium intake and exercise for weight control. Continue losartan 25 metoprolol XL 100 daily. She stopped the hydrochlorothiazide due to hypotension. Will continue monitor closely Statin intolerance 09/16/2023 Positive depression screening 08/04/2023 12/25/2024 Assessment & Plan (08/04/2023 11:36 AM CLEANER AND DYER): See depression Skin lesion 08/04/2023 12/25/2024 Assessment & Plan (08/04/2023 11:36 AM CLEANER AND DYER): Patient has a skin lesion that is pedunculated towards the right axilla more towards the chest wall. It looks very keratotic as though it may have been pulled and irritated. She states it will change colors at times. Recommend removal. Will get her scheduled for this procedure Tooth infection 06/01/2023 08/04/2023 Assessment & Plan (06/01/2023 3:52 PM CLEANER AND DYER): Stressed the importance of getting in with dentist as soon as possible. Will send out amoxicillin t.i.d. for 10 days. She can gargle salt water use Tylenol or Motrin for pain relief. If she has increased swelling starts to have more redness up the face then she is to follow up immediately for immediate evaluation. She verbalizes understanding of the plan Left wrist pain 03/26/2023 12/25/2024 Assessment & Plan (03/26/2023 2:46 PM CDT): Patient experiencing persistent pain in her hands after a fall. Will check x- rays Pain of left hand 03/26/2023 12/25/2024 Assessment & Plan (03/26/2023 2:47 PM CDT): Patient experiencing persistent pain in her hands after a fall. Will check x- rays Morbid obesity 03/10/2023 06/04/2024 Assessment & Plan (01/09/2024 8:32 PM CDT): Discussed the patient's BMI. The BMI is above average. BMI management plan is completed. BMI Follow-up includes: nutrition counseling, exercise counseling and education provided. Assessment & Plan (08/04/2023 11:36 AM CLEANER AND DYER): Discussed the patient's BMI. The BMI is above average. BMI management plan is completed. BMI Follow-up includes: nutrition counseling, exercise counseling and education provided. Assessment & Plan (06/01/2023 3:53 PM CLEANER AND DYER): Discussed the patient's BMI. The BMI is above average. BMI management plan is completed. BMI Follow-up includes: nutrition counseling, exercise counseling and education provided. Assessment & Plan (03/10/2023 11:38 AM CDT): Discussed the patient's BMI. The BMI is above average. BMI management plan is completed. BMI Follow-up includes: nutrition counseling, exercise counseling and education provided. Obesity, morbid, BMI 40.0-49.9 03/10/2023 04/10/2025 Assessment & Plan (04/05/2025 1:22 PM CDT): Discussed the patient's BMI. The BMI is above average. BMI management plan is completed. BMI Follow-up includes: nutrition counseling, exercise counseling and education provided. Assessment & Plan (12/25/2024 8:06 AM CDT): Discussed the patient's BMI. The BMI is above average. BMI management plan is completed. BMI Follow-up includes: nutrition counseling, exercise counseling and education provided. Assessment & Plan (09/12/2024 11:26 AM CDT): Discussed the patient's BMI. The BMI is above average. BMI management plan is completed. BMI Follow-up includes: nutrition counseling, exercise counseling and education provided. Assessment & Plan (06/25/2024 10:53 PM CLEANER AND DYER): Discussed the patient's BMI. The BMI is above average. BMI management plan is completed. BMI Follow-up includes: nutrition counseling, exercise counseling and education provided. Assessment & Plan (05/26/2024 12:58 PM CLEANER AND DYER): Discussed the patient's BMI. The BMI is above average. BMI management plan is completed. BMI Follow-up includes: nutrition counseling, exercise counseling and education provided. Assessment & Plan (01/09/2024 8:33 PM CDT): Discussed the patient's BMI. The BMI is above average. BMI management plan is completed. BMI Follow-up includes: nutrition counseling, exercise counseling and education provided. Assessment & Plan (08/04/2023 11:36 AM CLEANER AND DYER): Discussed the patient's BMI. The BMI is above average. BMI management plan is completed. BMI Follow-up includes: nutrition counseling, exercise counseling and education provided. Assessment & Plan (06/01/2023 3:53 PM CLEANER AND DYER): Discussed the patient's BMI. The BMI is above average. BMI management plan is completed. BMI Follow-up includes: nutrition counseling, exercise counseling and education provided. Assessment & Plan (03/10/2023 11:38 AM CDT): Discussed the patient's BMI. The BMI is above average. BMI management plan is completed. BMI Follow-up includes: nutrition counseling, exercise counseling and education provided. 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 The BMI is above average. BMI management plan is completed. BMI Follow-up includes: nutrition counseling, exercise counseling and education provided. BMI 40.0-44.9, adult 01/26/2023 023 Assessment & Plan (01/26/2023 8:49 AM CDT): Discussed the patient's BMI. The BMI is above average. BMI management plan is completed. BMI Follow-up includes: nutrition counseling, exercise counseling and education provided. History of colon resection 10/04/2022 1 Overview (10/04/2022): 09/2022 - Dr. Lugo Sigmoid colon resection. Had bleeding at the anastomosis site. Assessment & Plan (01/26/2023 5:36 PM CDT): Patient has recovered well. Was encouraged to use Metamucil daily. States it is very expensive [id number]. Prescription sent. If she is difficulty filling can call for clarification but will see if her insurance will help her take care of this. Assessment & Plan (10/04/2022 6:41 PM CDT): Status post sigmoid colon resection. Had bleeding to the anastomosis site and required 2nd OR visit. She is recovered well Morbid obesity 09/18/2022 01/26/2023 Assessment & Plan (10/04/2022 6:41 PM CDT): Discussed the patient's BMI. The BMI is above average. BMI management plan is completed. BMI Follow-up includes: nutrition counseling, exercise counseling and education provided. Patient has an obesity-related condition (not limited to: hypertension, obstructive sleep apnea, osteoarthritis, hyperlipidemia, diabetes, etc.). Therefore, morbid obesity may be documented for patients with a BMI between 35.00-39.99. BMI 39.0-39.9,adult 09/18/2022 01/27/20 Assessment & Plan (09/18/2022 10:47 AM CDT): Discussed the patient's BMI. The BMI is above average. BMI management plan is completed. BMI Follow-up includes: nutrition counseling, exercise counseling and education provided. Encounter for pre-operative examination 07/26/2022 10/04/2022 Assessment & Plan (07/26/2022 8:01 PM CLEANER AND DYER): Procedure is still a few months out. I have reviewed with patient the inherent risks associated with surgery, not limited to bleeding, infection, DVT, etc. 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 She will need pre-op labs closer to the procedure. If normal/stable, to the best of my knowledge, there is not a medical contraindication for undergoing this elective surgery with general and/or regional anesthesia. Morbid obesity 07/14/2022 09/18/2022 Assessment & Plan (07/26/2022 7:56 PM CLEANER AND DYER): Obesity is unchanged. Discussed the patient's BMI. The BMI is above average. BMI management plan is completed. BMI Follow-up includes: nutrition counseling, exercise counseling and education provided. Patient has an obesity-related condition (not limited to: hypertension, obstructive sleep apnea, osteoarthritis, hyperlipidemia, diabetes, etc.). Therefore, morbid obesity may be documented for patients with a BMI between 35.00-39.99. BMI 39.0-39.9,adult 07/14/2022 09/19/19 Assessment & Plan (07/14/2022 2:02 PM CLEANER AND DYER): Obesity is unchanged. Discussed the patient's BMI. The BMI is above average. BMI management plan is completed. BMI Follow-up includes: nutrition counseling, exercise counseling and education provided. Angina pectoris, unstable 03/31/2022 Overview (04/01/2022): Added automatically from request for surgery [id number] Other chest pain 01/25/2022 12/25/2024 Assessment & Plan (01/25/2022 12:33 PM CDT): n next plan Patient has been noting chest pain especially while at work with activity. EKG in the office today showed abnormal changes. Will refer to cardiology for further evaluation. It notified patient if she would have acute chest pain that is increasing or syncopal type episode she is immediately to go to the ER. She voiced understanding and agrees with the plan 85bpm Normal sinus rhythm Left axis deviation Possible anterior infarct, age undetermined Abnormal EKG. BMI 38.0-38.9,adult 01/25/2022 07/14/19 Assessment & Plan (04/19/2022 12:10 AM CDT): Discussed the patient's BMI. The BMI is above average. BMI management plan is completed. BMI Follow-up includes: nutrition counseling, exercise counseling and education provided. Assessment & Plan (01/25/2022 12:33 PM CDT): Discussed the patient's BMI. The BMI is above average. BMI management plan is completed. BMI Follow-up includes: nutrition counseling, exercise counseling and education provided. Diverticulitis 11/05/2021 12/25/2024 Assessment & Plan (07/26/2022 7:55 PM CLEANER AND DYER): Patient with chronic diverticulitis. According to CT there is persistent area of colon changes. Dr. Lugo is planning colon resection in the next few months. Morbid obesity 08/19/2021 07/14/2022 Assessment & Plan (04/19/2022 12:10 AM CDT): Discussed the patient's BMI. The BMI is above average. BMI management plan is completed. BMI Follow-up includes: nutrition counseling, exercise counseling and education provided. . Patient has an obesity-related condition (not limited to: hypertension, obstructive sleep apnea, osteoarthritis, hyperlipidemia, diabetes, etc.). Therefore, morbid obesity may be documented for patients with a BMI between 35.00-39.99. Assessment & Plan (01/25/2022 12:33 PM CDT): Discussed the patient's BMI. The BMI is above average. BMI management plan is completed. BMI Follow-up includes: nutrition counseling, exercise counseling and education provided. Patient has an obesity-related condition (not limited to: hypertension, obstructive sleep apnea, osteoarthritis, hyperlipidemia, diabetes, etc.). Therefore, morbid obesity may be documented for patients with a BMI between 35.00-39.99. Assessment & Plan (08/19/2021 1:19 PM CLEANER AND DYER): Obesity is unchanged. Discussed the patient's BMI. The BMI is above average. BMI management plan is completed. BMI Follow-up includes: nutrition counseling, exercise counseling and education provided. Pre-diabetes 07/08/2021 12/25/2024 Assessment & Plan (06/25/2024 10:53 PM CLEANER AND DYER): Pre-diabetes/hyperglycemia is a precursor to Dm. Stressed importance of working on diet (decrease your simple sugars and one carbohydrate with each meal) and increase you exercise to achieve weight loss and this will help prevent you from progressing to diabetes. Assessment & Plan (08/04/2023 11:34 AM CLEANER AND DYER): Pre-diabetes/hyperglycemia is a precursor to Dm. Stressed importance of working on diet (decrease your simple sugars and one carbohydrate with each meal) and increase you exercise to achieve weight loss and this will help prevent you from progressing to diabetes. Assessment & Plan (03/26/2023 2:46 PM CDT): Pre-diabetes/hyperglycemia is a precursor to Dm. Stressed importance of working on diet (decrease your simple sugars and one carbohydrate with each meal) and increase you exercise to achieve weight loss and this will help prevent you from progressing to diabetes. Assessment & Plan (01/26/2023 5:34 PM CDT): Pre-diabetes/hyperglycemia is a precursor to Dm. Stressed importance of working on diet (decrease your simple sugars and one carbohydrate with each meal) and increase you exercise to achieve weight loss and this will help prevent you from progressing to diabetes. Assessment & Plan (04/19/2022 12:08 AM CDT): Pre-diabetes/hyperglycemia is a precursor to Dm. Stressed importance of working on diet (decrease your simple sugars and one carbohydrate with each meal) and increase you exercise to achieve weight loss and this will help prevent you from progressing to diabetes. Assessment & Plan (01/25/2022 10:30 AM CDT): Pre-diabetes/hyperglycemia is a precursor to Dm. Stressed importance of working on diet (decrease your simple sugars and one carbohydrate with each meal) and increase you exercise to achieve weight loss and this will help prevent you from progressing to diabetes. Assessment & Plan (09/13/2021 12:56 PM CLEANER AND DYER): Pre-diabetes/hyperglycemia is a precursor to Dm. Stressed importance of working on diet (decrease your simple sugars and one carbohydrate with each meal) and increase you exercise to achieve weight loss and this will help prevent you from progressing to diabetes. Assessment & Plan (07/20/2021 6:09 PM CLEANER AND DYER): Pre-diabetes/hyperglycemia is a precursor to Dm. Stressed importance of working on diet (decrease your simple sugars and one carbohydrate with each meal) and increase you exercise to achieve weight loss and this will help prevent you from progressing to diabetes. Daytime sleepiness 07/08/2021 Assessment & Plan (01/25/2022 10:31 AM CDT): Saw Dr. Reece but unfortunately is waiting on CPAP due to the problems with recalls. Assessment & Plan (07/20/2021 6:10 PM CLEANER AND DYER): Patient has daytime sleepiness and significant snoring. She has never had a sleep study. Will refer for further evaluation. Joint pain 07/08/2021 04/10/2025 Assessment & Plan (07/20/2021 6:11 PM CLEANER AND DYER): Patient has had chronic joint pain. Has strong family history of multiple autoimmune conditions. Will check autoimmune labs. Benign essential HTN 11/28/2016 025 Assessment & Plan (09/24/2024 10:11 PM CDT): Bp is stable/in acceptable range for any co-morbidities. Encouraged to limit sodium intake and exercise for weight control. Continue metoprolol XL 50 Assessment & Plan (01/25/2022 12:33 PM CDT): Bp is stable/in acceptable range for any co-morbidities. Encouraged to limit sodium intake and exercise for weight control. Continue losartan 100 mg daily Assessment & Plan (09/13/2021 12:58 PM CLEANER AND DYER): Bp is stable/in acceptable range for any co-morbidities. Encouraged to limit sodium intake and exercise for weight control. Continue losartan Assessment & Plan (07/20/2021 6:11 PM CLEANER AND DYER): Bp is stable/in acceptable range for any co-morbidities. Encouraged to limit sodium intake and exercise for weight control. Continue losartan. Will continue to monitor closely as it is elevated a little today but difficult to know if it is because of her 1st visit. Depression 11/28/2016 01/26/2023 Familial hypercholesterolemia 11/28/2016 09/24/2024 Assessment & Plan (06/04/2024 9:17 PM CLEANER AND DYER): Encouraged patient to restart all of her cardiac meds. She has been on metoprolol and losartan. Patient states she did not tolerate a statin so she is trying to get on a PCSK9 but unsure of where we are with coverage. Has not seen Dr. Escamilla in follow- up. He has now relocated. She will be going to the ER for evaluation of her mental health concerns and will have her follow back up to readdress the cholesterol medication concerns. Metabolic acidosis, increased anion gap 11/28/2016 07/26/2022 Myocardiopathy 04/05/2025 Encounters Date Type Department Care Team Description 05/11/2025 Telephone [facility] [address] [place] [id number] Nolan Reece MD Sleep study authorization 05/09/2025 10:30 AM CLEANER AND DYER Office Visit [facility] Pulmonology [address] [place] [phone] Nolan Reece MD YENIFER (obstructive sleep apnea) (Primary Dx); Personal history of tobacco use; Dyspnea on exertion 05/02/2025 Telephone [facility] Family Medicine [address] [place] [address] Luisa Villeda PA 04/17/2025 10:18 AM CDT Anesthesia Event [facility] OR [address] [place] [id number] Alfie Babb MD White, Kalvin L., 04/17/2025 9:20 AM CDT - 04/17/2025 11:45 AM CDT Surgery [facility] OR [address] [place] [address] [id number] Daniel العراقي MD ROBOTIC ASSISTED LAPAROSCOPIC INCISIONAL HERNIA REPAIR WITH MESH, ROBOTIC LYSIS OF ADHESIONS 04/17/2025 6:09 AM CDT - 04/18/2025 4:40 PM CDT Hospital Encounter [facility] [address] [facility] [place] [address] Dainel العراقي MD Gaspe Mudiyanselage, Prabhjot Pinto MD COPD exacerbation (HCC) (Primary Dx) Discharge Disposition: Discharge to home or self care 04/10/2025 3:55 PM CDT - 04/10/2025 11:59 PM CDT Hospital Encounter [facility] Diagnostic Imaging [address] [place] [phone] Chronic cough Discharge Disposition: Discharge to home or self care 04/10/2025 3:45 PM CDT Lab [facility] Lab [address] [place] [phone] Pain of foot, unspecified laterality 04/10/2025 Results Follow-Up [address] [place] [phone] Luisa Villeda PA Uric acid, XR Chest Pa Lateral 2 Views 04/05/2025 1:30 PM CDT Office Visit [address] [place] [phone] Luisa Villeda PA Umbilical hernia without obstruction and without gangrene (Primary Dx); Encounter for pre-operative examination; Atrial flutter by electrocardiogram ([facility]); Controlled type 2 diabetes mellitus without complication, without long-term current use of insulin; Hypertension associated with diabetes ([facility]); Type 2 diabetes mellitus with hyperlipidemia ([facility]); Drug-induced myopathy; YENIFER on CPAP; Chronic bilateral low back pain without sciatica; Low serum vitamin B12; Pain of foot, unspecified laterality; Chronic cough; Cigarette smoker; Mouth ulcers; Moderate episode of recurrent major depressive disorder ([facility]); History of colon resection; History of drug abuse in remission ([facility]); Morbid obesity ([facility]); BMI 40.0-44.9, adult (HCC) 03/29/2025 12:41 PM CDT - 03/29/2025 6:00 PM CDT Emergency [address] [place] [address] Tom Back MD Harper, Theodore Roosevelt, MD Paresthesia (Primary Dx); Nonintractable headache, unspecified chronicity pattern, unspecified headache type; Chest pain, unspecified type Discharge Disposition: Discharge to home or self care 03/29/2025 9:30 AM CDT Office Visit [facility] [address] [place] [address] [address] [place] [phone] Luisa Villeda PA Other chest pain (Primary Dx); Type 2 diabetes mellitus with hyperlipidemia (HCC) 03/15/2025 Telephone [facility] [address] [place] [address] Luisa Villeda PA from Last 3 Months Immunizations Immunization Administration Dates Next Due Influenza, Quadrivalent, Spl it, Intramuscular 04/27/2019,06/02/2018,04/03/2016 Influenza, Trivalent, IM (MDV) 05/10/2015 Influenza, Unspecified 05/26/2024(Deferr ed: Patient Refused),08/17/2023(Deferred: Patient Refused),07/05/2023(Deferred: Patient Refused),07/05/2023(Deferred: Patient Refused),07/05/2023(Deferred: Patient Refused),08/05/2022(Deferred: Patient Refused),04/16/2022(Deferred: Patient Refused),08/19/2021(Deferred: Patient Refused) Pneumococcal Polysaccharide PPV23 11/29/2016 Tdap 04/27/2019 Surgical History Surgery Date Site/Laterality Comments HYSTERECTOMY SECTION 2 INCONTINENCE SURGERY 07/05/2006 - 07/04/2007 Bladder Sling COLONOSCOPY 04/15/2022 CARDIAC CATHETERIZATION 03/05/2022 - 04/03/2022 CATARACT EXTRACTION 04/05/2023 Left HERNIA REPAIR 04/17/2025 Medical History Medical History Date Comments Depression Anxiety Hypertension High cholesterol Acid reflux Controlled with meds; Has had issues with GERD after anesthesia in the past. IBS (irritable bowel syndrome) Asthma Controlled. Diverticulosis Herpes Pre-diabetes Chronic pain Pain to Legs Sleep apnea + Cpap Obesity Fibromyalgia Anemia Donates Plasma 2 x weekly Allergic rhinitis Chipped tooth Upper Front. Dental crown present x8 - Molar crowns and 2 bottom front. Dysphagia Myocardial infarction (HCC) COPD (chronic obstructive pu lmonary disease) Wheezing 04/10/2025 patient reported increased wheezing in the mornings. Family History Medical History Relation Name Comments No Known Problems Father Heart disease Mother Lupus Mother Breast cancer Mother's Sister Relation Name Status Comments Father Mother Mother's Sister Social History Tobacco Use Types Packs/Day Years Used Date Smoking Tobacco: Some Days Cigarettes 0.5 42.9 Started: 1982 Smokeless Tobacco: Never Tobacco Cessation:Ready to Q uit: Not Asked; Counseling Given: Not Answered Comments:Started smoking at age 13 1-2 currently heaviest ppd hx one pack Alcohol Use Standard Drinks/Week Comments Never 0 (1 standard drink = 0.6 oz pur e alcohol) [facility] Utilities Answer Date Recorded In the past 12 months has e [employer], gas, oil, or water [employer] threatened to shut off services in your [...] often do you attend chur ch or yazidi services? Never 12/20/2023 Do you belong to any clubs o r organizations such as christian groups, unions, fraternal or athletic groups, or [...] any time in the past 12 m [facility], were you homeless or living in a nursing home (including now)? No 12/20/2023 AUDIT-C Answer Date Recorded Q1: How often do you have a drink containing alcohol? Never 04/17/2025 Q2: How many drinks containi ng alcohol do you have on a typical day when you are drinking? Patient does not drink Q3: How often do you have si x or more drinks on one occasion? Never 04/17/2025 Personal Safety Answer Date Recorded Have you ever been in or are you currently in a harmful physical or emotional relationship or is someone making you feel afraid or unsafe? Denies 04/17/2025 Comments No Sex and Gender Information Value Date Recorded Sex Assigned at Not on file Legal Sex Female 2:19 AM [employer] Gender Identity Not on file Sexual Orientation Not on file Obstetrics History Para Term AB IAB SAB Ectopic Multiple Livin g Live Births 3 3 3 Date Outcome GA Total Labor Labor/2nd/3rd Weight Sex Type Anes PTL Jina A1 A5 Name Clin Term Term Term Last Filed Vital Signs Vital Sign Reading Time Taken Comments Blood Pressure 98/73 05/09/2025 10:19 AM [employer] Pulse 92 05/09/2025 10:19 AM [employer] Temperature 36.2 C (97.1 F) 05/09/2025 10:19 AM [employer]ER Respiratory Rate 18 05/09/2025 10:19 AM [employer]ER Oxygen Saturation 94% 05/09/2025 10:19 AM [employer]ER AND [employer]ER Inhaled Oxygen Concentration - - Weight 116.1 kg (256 lb) 05/09/2025 10:19 AM [employer]ER [employer]ER Height 165.1 cm (5' 5) 05/09/2025 10:19 AM [employer]ER [employer]ER Body Mass Index 42.6 05/09/2025 10:19 AM [employer]ER Plan of Treatment Upcoming Encounters Date Type Department Care Team (Late st Contact Info) Description 06/05/2025 8:00 AM [employer] AND [employer]ER Hospital Encounter [facility] [address] [place] [id number] Paula Lugo MD [address] [place] [address] 06/05/2025 8:00 AM [employer]ER [employer]ER - 06/05/2025 8:30 AM [employer] Surgery [facility] [address] [place] [id number] Paula Lugo MD [address] [place] [id number] COLONOSCOPY Scheduled Procedures Name Priority Associated Diagnoses Date/Ti me COLONOSCOPY hx of polyps 06/05/2025 8:00 AM [employer] Health Maintenance Due Date Last Done Comments Hepatitis C Screening 1970 Foot Exam 1970 Hepatitis B Screening 1988 Regular Well Visit/Exam 18-64 1988 Pneumococcal vaccine <65 (2 of 2 - PCV) 11/29/2017 11/29/2016 Lung Cancer Screening 2020 Zoster Vaccine (1 of 2) 2020 Breast Cancer Screening-Mammogram 10/16/2023 023 Colon Cancer Screening-Colonoscopy 12/19/20232020 Covid-19 Vaccine (2 - 2024-2 6 season) 2025 03/20/2021 Influenza Vaccine (#1) 2025 9, 06/02/2018, 04/03/2016, Additional history exists Dilated Eye Exam 09/16/2025 09/16/2024 Hemoglobin A1C 10/16/2025 04/17/2025, 03/06, 12/25/2024, Additional history exists Albumin Creatinine Ratio, Urine 12/25/2025 Lipid Panel 12/25/2025 12/25/2024, 12/03, 10/19/2023, Additional history exists Depression Screening 04/05/2026 04/05/2025, 03/29/2025, 12/25/2024, Additional history exists eGFR 04/17/2026 04/17/2025, 03/06, 12/18/2024, Additional history exists DTaP/Tdap/Td Vaccine (2 - Td or Tdap) 04/27/2029 04/27/2019 Medical Devices Implanted Type Area Marinator Device Identifier Shelf Expiration Date Model / Serial / Lot [employer]/C R Bard Mesh Surgical Hernia Synthetic Oval Ventralight 6x8in Polypropylene [id number] - [id number] Implanted:Qty: 1 on 04/17/2025 by Daniel العراقي MD at [facility] Mesh Left: Abdomen [employer]/C R Bard [id number] 09/01/2026 [id number] / / [id number] [employer] Angio-Seal Vip 6fr Closere Device [id number] - [id number] Implanted:Qty: 1 on 04/01/2022 by Naren Mendoza MD at [facility] [employer] 02/01/2023 [id number] / / [id number] 2 Description:Angio seal from Cardiac cath- takes a few months disorder. Procedures Procedure Name Priority Date/Time Associated Diagnosis Comments POCT GLUCOSE DEVICE Routine 04/18/2025 12:02 PM CDT POCT GLUCOSE DEVICE Routine 04/18/2025 7 :51 AM CDT XR CHEST PA LATERAL 2 VIEWS IP Routine 04/18/2025 7:36 AM CDT POCT GLUCOSE DEVICE Routine 04/17/2025 10:02 PM CDT POCT GLUCOSE DEVICE Routine 04/17/2025 8 :33 PM CDT B ABO / RH CONFIRMATION TESTING STAT 04/17/2025 8:22 PM CDT POCT GLUCOSE DEVICE Routine 04/17/2025 7 :12 PM CDT HEMOGLOBIN A1C STAT 04/17/2025 6:08 PM CDT EGFR STAT 04/17/2025 6:08 PM CDT DIFFERENTIAL AUTO STAT 04/17/2025 6:0 8 PM CDT ANTIBODY SCREEN STAT 04/17/2025 6:08 PM CDT ABO/RH STAT 04/17/2025 6:08 PM CDT PRO B-TYPE NATRIURETIC PEPTIDE STAT 04/17/2025 6:08 PM CDT TYPE AND SCREEN STAT 04/17/2025 6:08 PM CDT COMPREHENSIVE METABOLIC PANEL STAT 04/17/2025 6:08 PM CDT CBC WITH AUTO DIFFERENTIAL STAT 04/17/2025 6:08 PM CDT XR CHEST 1 VIEW ED Urgent/IP Urgent 04/17/2025 5:55 PM CDT POCT GLUCOSE DEVICE Routine 04/17/2025 1 :20 PM CDT NC AN PROCEDURE PLACEHOLDER Routine 04/17/2025 10:53 AM CDT NC AN ELECTIVE ENDOTRACHEAL AIRWAY Routine 04/17/2025 10:53 AM CDT XI REPAIR INCISIONAL HERNIA - LAPAROSCOPIC ROBOTIC ASSISTED 04/17/2025 10:18 AM CDT INCISIONAL HERNIA XR CHEST PA LATERAL 2 VIEWS Schedule Routine, Read Routine (OP Routine) 04/10/2025 4:09 PM CDT Chronic cough URIC ACID Routine 04/10/2025 3:50 PM CDT Pain of foot, unspecified laterality MRI BRAIN WO CONTRAST ED 03/29/2025 5:33 PM CDT DRUGS OF ABUSE SCREEN, URINE WITHOUT CONFIRMATION STAT 03/29/2025 3:14 PM CDT CASEY SCREEN W/REFLEX LEONARDA+DSDNA Routine 03/29/2025 1:57 PM CDT TSH Routine 03/29/2025 1:57 PM CDT ERYTHROCYTE SEDIMENTATION RATE Routine 03/29/2025 1:57 PM CDT VITAMIN B6 Routine 03/29/2025 1:57 PM CDT VITAMIN B12 Routine 03/29/2025 1:57 PM CDT VITAMIN B1 Routine 03/29/2025 1:57 PM CDT TROPONIN T HIGH-SENSITIVITY 2-HOUR Timed 03/29/2025 1:57 PM CDT POCT HCG, URINE Routine 03/29/2025 12:39 PM CDT URINALYSIS, MICROSCOPIC ONLY STAT 03/29/2025 12:37 PM CDT URINALYSIS AND REFLEX TO MICROSCOPIC AND CULTURE STAT 03/29/2025 12:37 PM CDT ECG 12-LEAD STAT 03/29/2025 12:[address] HEAD WO CONTRAST ED 03/29/2025 12:29 PM CDT EGFR STAT 03/29/2025 12:19 PM CDT DIFFERENTIAL AUTO STAT 03/29/2025 12:19 PM CDT TROPONIN T HIGH-SENSITIVITY SERIES (BASELINE, 2HR, 4HR, 6HR) STAT 03/29/2025 12:19 PM CDT APTT STAT 03/29/2025 12:19 PM CDT PROTIME-INR STAT 03/29/2025 12:19 PM CDT COMPREHENSIVE METABOLIC PANEL STAT 03/29/2025 12:19 PM CDT CBC WITH AUTO DIFFERENTIAL STAT 03/29/2025 12:19 PM CDT POCT HEMOGLOBIN A1C Routine 03/29/2025 10:31 AM CDT Type 2 diabetes mellitus with hyperlipidemia (HCC) ECG 12-LEAD Routine 03/29/2025 Other chest pain ALBUMIN CREATININE RATIO, URINE Routine 12/25/2024 8:30 AM CDT Controlled type 2 diabetes mellitus without complication, without long-term current use of insulin (HCC) POCT LIPID PANEL Routine 12/25/2024 8:25 AM CDT Type 2 diabetes mellitus with hyperlipidemia (HCC) HM DIABETES EYE EXAM Routine 09/16/2024 2:22 PM CDT SCREENING MAMMOGRAM BILATERAL W IAIN Schedule Routine, Read Routine (OP Routine) 10/15/2022 12:07 PM CDT Breast cancer screening by mammogram COLONOSCOPY Routine 12/18/2020 from Last 3 Months or Most Recently Relevant to Health Maintenance Results * (ABNORMAL) POCT glucose (04/18/2025 12:02 PM CDT) Glucose, POC 210(H) 70 - 199 mg/dL Comment:Testing performed by : [address] [id number] Glucose comment 1 RN/MD Notified [facility] Comment:Testing performed by : [address] [id number] Blood 04/18/2025 12:0 2 PM CDT 04/18/2025 12:02 PM CDT us Daniel العراقي MD LAB POCT ORDERABLES - DEVICE Final Result Performing Organization Address [facility] de Phone Number [address] [place] [address] * (ABNORMAL) POCT glucose (04/18/2025 7:51 AM CDT) Glucose, POC 218(H) 70 - 199 mg/dL Comment:Testing performed by : [address] [address] Glucose comment 1 RN/MD Notified [facility] Comment:Testing performed by : [address] [address] Blood 04/18/2025 7:51 AM CDT 04/18/2025 7:51 AM CDT us Daniel العراقي MD LAB POCT ORDERABLES - DEVICE Final Result Performing Organization Address [facility] Co de Phone Number [address] [place] [address] * XR Chest Pa Lateral 2 Views (04/18/2025 7:36 AM CDT) Anatomical Region Laterality Modality Body, Chest N/A Computed Radiogr aphy 04/18/2025 7:44 AM CDT Narrative 04/18/2025 7:46 AM CDT EXAM DESCRIPTION: XR CHEST PA LATERAL 2 VIEWS REASON FOR STUDY: SOB, pulmonary edema suspected, assess pleural effusion Pt states sob today TECHNIQUE: 2 radiographic view(s) of the chest. COMPARISON: 04/17/2025 FINDINGS: LUNGS: Bilateral interstitial opacities are improved. No significant pleural effusion. No pneumothorax. HEART/MEDIASTINUM: Cardiac silhouette normal in size. Mediastinal and hilar contours appear normal. LINES/TUBES: None. BONES: No acute osseous abnormality. IMPRESSION: No significant pleural effusion. Improved bilateral interstitial opacities suggesting improving pulmonary edema. THIS IS AN ELECTRONICALLY VERIFIED FINAL REPORT 04/18/2025 7:46 AM - Electronically signed by Swapnil Berrios M.D. KR: LETICIA Report ID: [id number] Reading Location: [id number] Procedure Note Swapnil Berrios MD - 04/18/2025 EXAM DESCRIPTION: XR CHEST PA LATERAL 2 VIEWS REASON FOR STUDY: SOB, pulmonary edema suspected, assess pleural effusion Pt states sob today TECHNIQUE: 2 radiographic view(s) of the chest. COMPARISON: 04/17/2025 FINDINGS: LUNGS: Bilateral interstitial opacities are improved. No significant pleural effusion. No pneumothorax. HEART/MEDIASTINUM: Cardiac silhouette normal in size. Mediastinal andhilar contours appear normal. LINES/TUBES: None. BONES: No acute osseous abnormality. IMPRESSION: No significant pleural effusion. Improved bilateral interstitial opacities suggesting improving pulmonary edema. THIS IS AN ELECTRONICALLY VERIFIED FINAL REPORT 04/18/2025 7:46 AM - Electronically signed by Swapnil Berrios M.D. KR: LETICIA Report ID: [id number] Reading Location: [id number] Anaupcindy Nicole MD IMG XR NC OCEDURES Final Result * (ABNORMAL) POCT glucose (04/17/2025 10:02 PM CDT) Glucose, POC 250(H) 70 - 199 mg/dL Comment:Testing performed by : [address] [id number] Blood 04/17/2025 10:0 2 PM CDT 04/17/2025 10:02 PM CDT Daniel العراقي MD LAB POCT ORDERABLES - DEVICE Final Result Performing Organization Address [facility] Co de Phone Number [address] [place] [address] * (ABNORMAL) POCT glucose (04/17/2025 8:33 PM CDT) Glucose, POC 225(H) 70 - 199 mg/dL Comment:Testing performed by : [address] [address] Blood 04/17/2025 8:33 PM CDT 04/17/2025 8:33 PM CDT us Daniel العراقي MD LAB POCT ORDERABLES - DEVICE Final Result Performing Organization Address [facility] Co de Phone Number [address] [place] [address] * ABO / Rh Confirmation Testing (04/17/2025 8:22 PM CDT) ABO/Rh Confirmation O Positive [facility] Comment:Testing performed by : [address] [address] Blood 04/17/2025 8:22 PM CDT 04/17/2025 8:24 PM CDT Prabhjot Nicole MD LAB BLOOD ORDERABLES Final Result [facility] [address] [facility] Department [place] [address] MH * POCT glucose (04/17/2025 7:12 PM CDT) Glucose, POC 179 70 - 199 mg/dL Comment:Testing performed by : [facility], [address] [place] [address]., [id number] Blood 04/17/2025 7:12 PM CDT 04/17/2025 7:12 PM CDT us Daniel العراقي MD LAB POCT ORDERABLES - DEVICE Final Result [facility] [address] [facility] [place] [address] * eGFR (04/17/2025 6:08 PM CDT) Pathologist [facility] eGFR 88 >=60 mL/min/1. 73 m2 Comment: Interpretive Data Reference Interval Normal >/= 90 mL/min/1.73m2 Mildly decreased* 60 - 89 mL/min/1.73m2 Mildly to moderately decreased 45 - 59 mL/min/1.73m2 Moderately to severely decreased 30 - 44 mL/min/1.73m2 Severely decreased 15 - 29 mL/min/1.73m2 Kidney Failure < 15 mL/min/1.73m2 *Relative to young adult level Estimated glomerular filtration rate is determined by the 2020 CKD-EPI equation recommended by the National Kidney Foundation (A Unifying Approach to GFR Estimation: Recommendations of the NKF-ASK Task Force on Reassessing the Inclusion of Race in Diagnosing Kidney Disease, JASN 2020). The CKD-EPI equation should not be used for patients with unstable renal function and has not been validated in children and those over 70. Current interpretive data was last reviewed 2021. Testing performed by: [facility], [address] [place] [address]., [id number] Blood 04/17/2025 6:08 PM CDT 04/17/2025 6:41 PM CDT us Nilupa Sewwandi Gaspe Mudiyanselage MD LAB BLOOD ORDERABLES Final Result [facility] [address] [facility] Department [place] [address] * (ABNORMAL) Differential, auto (04/17/2025 6:08 PM CDT) Neutrophil abs 13.08(H) 1.50 - 6.50 K/cumm Comment:Testing performed by : [address] [address] Imm gran abs 0.08 0.00 - 0.10 K/cumm [facility] Comment:Testing performed by : [address] [address] Lymphocyte abs 1.05 0.80 - 3.30 K/cumm [facility] Comment:Testing performed by : [address] [address] Monocyte abs 0.33 0.20 - 0.80 K/cumm [facility] Comment:Testing performed by : [address] [address] Eosinophil abs 0.01 0.00 - 0.50 K/cumm [facility] Comment:Testing performed by : [address] [address] Basophil abs 0.02 0.00 - 0.10 K/cumm [facility] Comment:Testing performed by : [address] [address] Neutrophil pct 89.8 % [facility] Comment: Interpretive Data Percent cell count reference ranges are not reported, since discordance with absolute values may lead to misinterpretation of CBC data. Current Interpretive Data was last revised on 2017. Testing performed by: [address] [address] Imm gran pct 0.5 % [facility] Comment: Interpretive Data Percent cell count reference ranges are not reported, since discordance with absolute values may lead to misinterpretation of CBC data. Current Interpretive Data was last revised on 2017. Testing performed by: [address] [place]., [address] Lymphocyte pct 7.2 % [facility] Comment: Interpretive Data Percent cell count reference ranges are not reported, since discordance with absolute values may lead to misinterpretation of CBC data. Current Interpretive Data was last revised on 2017. Testing performed by: [facility], [address] [place] [address]., [address] Monocyte pct 2.3 % [facility] Comment: Interpretive Data Percent cell count reference ranges are not reported, since discordance with absolute values may lead to misinterpretation of CBC data. Current Interpretive Data was last revised on 2017. Testing performed by: [address] [address] Eosinophil pct 0.1 % [facility] Comment: Interpretive Data Percent cell count reference ranges are not reported, since discordance with absolute values may lead to misinterpretation of CBC data. Current Interpretive Data was last revised on 2017. Testing performed by: [address] [address] Basophil pct 0.1 % [facility] Comment: Interpretive Data Percent cell count reference ranges are not reported, since discordance with absolute values may lead to misinterpretation of CBC data. Current Interpretive Data was last revised on 2017. Testing performed by: [address] [address] Blood 04/17/2025 6:08 PM CDT 04/17/2025 6:42 PM CDT us Prabhjot Nicole MD LAB BLOOD ORDERABLES Final Result [facility] [address] [facility] Department [place] [address] * Pro B-type natriuretic peptide (04/17/2025 6:08 PM CDT) NT-proBNP 68 <=300 pg/mL Comment: Interpretive Comments: A. Dyspnea in Acute Care Setting All Ages: < 300 pg/ml, acute heart failure unlikely. < 50 yrs: 300 - 450 pg/ml, further investigation warranted. > 450 pg/ml, acute heart failure likely. 50 - 74 yrs: 300 - 900 pg/ml, further investigation warranted. > 900 pg/ml, acute heart failure likely . > or = 75 yrs: 450 - 1800 pg/ml, further investigation warranted. > 1800 pg/ml, acute heart failure likely. B. Non-acute Setting < 75 yrs < 125 pg/ml, rules out heart failure. > or = 125 pg/ml, further investigation warranted. > or = 75 yrs < 450 pg/ml, rules out heart failure. > or = 450 pg/ml, further investigation warranted. - Knowledge of each individual patient's NT-proBNP range may be more useful than using similar cut-points for every patient. Please note that marked elevations in NT-proBNP levels may be observed in state other than Left Ventricular Congestive Failure, including: acute coronary syndromes, right heart strain/failure (including pulmonary embolism and cor pulmonale), critical illness, renal failure, as well as advanced age. - References: 1. Chelsea GONSALES et.al. Eur Heart J. 2006:27:330-337. 2. Eliecer RW, Atul ANTHONY. J. AM Taylor Cardiol: Cardiovasc Imag. 2009;2: 216- 225. Interpretive Data Last Revised Date: 2018. Testing performed by: [address] [address] Blood 04/17/2025 6:08 PM CDT 04/17/2025 6:41 PM CDT Prabhjot Nicole MD LAB BLOOD ORDERABLES Final Result [facility] [address] [facility] Department [place] [address] * (ABNORMAL) CBC with auto differential (04/17/2025 6:08 PM CDT) Pathologist [facility] WBC 14.57(H) 3.80 - 9.90 K/cumm Comment:Testing performed by : [address] [address] Hgb 13.4 11.9 - 15.5 g/dL [facility] Comment:Testing performed by : [address], [address] Hct 41.3 35.6 - 45.5 % [facility] Comment:Testing performed by : [address], [address] Plt 196 150 - 400 K/cumm [facility] Comment:Testing performed by : [address], [address] MPV 13.0(H) 9.1 - 12.3 fL [facility] Comment:Testing performed by : [address], [address] RBC 4.60 3.90 - 5.20 M/cumm [facility] Comment:Testing performed by : [address], [address] MCV 89.8 81.3 - 96.4 fL [facility] Comment:Testing performed by : [address], [address] MCH 29.1 27.1 - 33.3 pg [facility] Comment:Testing performed by : [address], [address] MCHC 32.4 32.3 - 35.7 g/dL [facility] Comment:Testing performed by : [address], [address] RDW CV 12.6 11.1 - 14.9 % [facility] Comment:Testing performed by : [address], [address] RDW SD 41.4 35.7 - 48.1 fL [facility] Comment:Testing performed by : [address], [address] NRBC abs 0.00 0.00 - 0.01 K/cumm [facility] Comment:Testing performed by : [address], [address] Blood 04/17/2025 6:08 PM CDT 04/17/2025 6:42 PM CDT us Nilupa Sewwandi Gaspe Mudiyanselage MD LAB BLOOD ORDERABLES Final Result [address] [address] * ABO/Rh (04/17/2025 6:08 PM CDT) Pathologist [facility] ABO/Rh O Positive Comment:Testing performed by : [address] [address] Blood 04/17/2025 6:08 PM CDT 04/17/2025 6:41 PM CDT Narrative YSED - 04/17/2025 7:02 PM CDT Has the patient had Daratumumab or Isatuximab in the past 6 months?->Unknown Prabhjot Nicole MD LAB BLOOD BANK TEST ORDERABLES Final Result Performing Organization Address [facility] Co de Phone Number [address] [address] * Antibody screen (04/17/2025 6:08 PM CDT) Pathologist [facility] Jeanie, indirect, Gel Interpretation Negative [facility] Comment:Testing performed by : [address] [address] Blood 04/17/2025 6:08 PM CDT 04/17/2025 6:41 PM CDT Narrative [facility] - 04/17/2025 7:17 PM CDT Has the patient had Daratumumab or Isatuximab in the past 6 months?->Unknown Prabhjot Nicole MD LAB BLOOD BANK TEST ORDERABLES Final Result Performing Organization Address City/[facility]/ZIP Co de Phone Number [address] [address] * (ABNORMAL) Hemoglobin A1c (04/17/2025 6:08 PM CDT) Pathologist [facility] Hgb A1C 6.8(H) 4.0 - 5.6 % Comment:Testing performed by : [address] [address] Estimated Average Glucose 148 mg/dL [facility] Comment: The ADA recommends reporting an estimated Average Glucose (eAG) with all Hemoglobin A1c results using the equation derived from a study of 507 normal and diabetic adults. Minority populations were underrepresented and children were not included. (Diabetes Care 31:0064-0667, 2008). The eAG is not equivalent to a fasting glucose. Testing performed by: [address] [address] Blood 04/17/2025 6:08 PM CDT 04/17/2025 6:42 PM CDT us Daniel العراقي MD LAB BLOOD ORDERABLES Final R esult [place] [address] [facility] Department [place] [address] * Comprehensive metabolic panel (04/17/2025 6:08 PM CDT) [facility] Sodium 135 135 - 145 mmol/L Comment:Testing performed by : [address] [address] Potassium, pl 4.3 3.3 - 4.9 mmol/L [facility] Comment:Testing performed by : [address] [address] Chloride 98 97 - 110 mmol/L [facility] Comment:Testing performed by : [address] [address] CO2 22 22 - 32 mmol/L [facility] Comment:Testing performed by : [address] [address] Anion gap 15 2 - 15 mmol/L [facility] Comment:Testing performed by : [address] [address] BUN 16 6 - 25 mg/dL [facility] Comment:Testing performed by : [address] [address] Creatinine 0.80 0.60 - 1.10 mg/dL [facility] Comment:Testing performed by : [address] [address] Glucose 196 70 - 199 mg/dL [facility] Comment: Interpretive Data Fasting glucose >/= 126 mg/dl is diagnostic for diabetes. Fasting is defined as no caloric intake for at least 8 hours. Fasting glucose between 100 mg/dl to 125 mg/dl is diagnostic of prediabetes. In a patient with classic symptoms of hyperglycemia or hyperglycemic crisis, a random glucose >/= 200 mg/dl is diagnostic for diabetes. In the absence of unequivocal hyperglycemia, results should be confirmed by repeat testing. The classification and Diagnosis of Diabetes Diabetes Care 2021; 46: S19-S40. Current interpretive data was last revised 2022. Testing performed by: [address] [address] Calcium 9.4 8.5 - 10.3 mg/dL [facility] Comment:Testing performed by : [address] [address] Bilirubin, total 0.3 0.1 - 1.2 mg/dL [facility] Comment:Testing performed by : [address] [address] Protein, pl 7.6 6.5 - 8.5 g/dL [facility] Comment:Testing performed by : [address] [address] Albumin 4.4 3.5 - 5.0 g/dL [facility] Comment:Testing performed by : [address] [address] Alk phos 89 40 - 130 Units/L [facility] Comment:Testing performed by : [address] [address] ALT 21 7 - 45 Units/L [facility] Comment:Testing performed by : [address] [address] AST 31 10 - 45 Units/L [facility] Comment:Testing performed by : [address] [address] Blood 04/17/2025 6:08 PM CDT 04/17/2025 6:41 PM CDT us Anaolaf Blair Nicole MD LAB BLOOD ORDERABLES Final Result [facility] [address] [facility] Department [place] [address] * XR Chest 1 View (04/17/2025 5:55 PM CDT) Anatomical Region Laterality Modality Body, Chest N/A Computed Radiogr aphy 04/17/2025 9:13 PM CDT Narrative 04/17/2025 9:16 PM CDT EXAM DESCRIPTION: XR CHEST 1 VIEW REASON FOR STUDY: Pre-Surgery or Post-Surgery Health Examination, SOB , crackles postop, audible wheezes Post-op film and SOB TECHNIQUE: AP semi upright radiographic view(s) of the chest. COMPARISON: Chest comparison 04/10/2025. FINDINGS: LUNGS: There are increasing interstitial opacities in a perihilar distribution. Findings suggest progression of interstitial edema in the appropriate clinical setting. Exam is somewhat limited by AP technique with low lung volumes. HEART/MEDIASTINUM: There is mild cardiac enlargement with prominent left ventricular contour. Findings are increased from prior. LINES/TUBES: Monitoring lines and leads. BONES: No acute osseous abnormality. IMPRESSION: Increasing interstitial opacities in a perihilar distribution. Mildly increased heart size compared to previous. Findings suggest progression of interstitial edema. Please correlate with clinical findings. THIS IS AN ELECTRONICALLY VERIFIED FINAL REPORT 04/17/2025 9:16 PM - Electronically signed by Eugene Orona M.D. LC: [id number] Report ID: [id number] Reading Location: [id number] Procedure Note Ramona Orona MD - 04/17/2025 EXAM DESCRIPTION: XR CHEST 1 VIEW REASON FOR STUDY: Pre-Surgery or Post-Surgery Health Examination, SOB , crackles postop, audible wheezes Post-op film and SOB TECHNIQUE: AP semi upright radiographic view(s) of the chest. COMPARISON: Chest comparison 04/10/2025. FINDINGS: LUNGS: There are increasing interstitial opacities in aperihilar distribution. Findings suggest progression of interstitial edema in the appropriate clinical setting. Exam is somewhat limited by AP techniquewith low lung volumes. HEART/MEDIASTINUM: There is mild cardiac enlargement with prominent left ventricular contour. Findings are increased from prior. LINES/TUBES: Monitoring lines and leads. BONES: No acute osseous abnormality. IMPRESSION: Increasing interstitial opacities in a perihilar distribution. Mildly increased heart size compared to previous. Findings suggest progression of interstitial edema. Please correlate with clinicalfindings. THIS IS AN ELECTRONICALLY VERIFIED FINAL REPORT 04/17/2025 9:16 PM - Electronically signed by Eugene Orona M.D. LC: [id number] Report ID: [id number] Reading Location: [place] [address] us Alfie Babb MD IMG XR PROCEDURES Final Resul t * POCT glucose (04/17/2025 1:20 PM CDT) [facility] Glucose, POC 172 70 - 199 mg/dL Comment:Testing performed by : [facility], [address] [place] [address]., [id number] Glucose comment 1 RN/MD Notified SYED Comment:Testing performed by : [facility], [address] [place] [address]., [id number] Blood 04/17/2025 1:20 PM CDT 04/17/2025 1:20 PM CDT us Daniel العراقي MD LAB POCT ORDERABLES - DEVICE Final Result SYED [address] [facility] Department [place] [address] * NC AN ELECTIVE ENDOTRACHEAL AIRWAY, NC AN PROCEDURE PLACEHOLDER (04/17/2025 10:53 AM CDT) Narrative Edilson Escobar CRNA - 04/17/2025 10:53 AM CDT Edilson Escobar CRNA 04/17/2025 10:54 AM Airway Patient location: OR Urgency: elective Date/time: 04/17/2025 10:25 AM Indications for airway management: anesthesia Difficult airway: no Staff: Supervising provider: Alfie Babb MD Placed by: ROUGH PLANER TENDER: Edilson Escobar CRNA Emergent airway documentation: Risks and benefits discussed: yes Consent obtained: yes Consent given by: patient Airway prep: Preoxygenated: yes Patient position: sniffing Mask difficulty assessment: 2 - vent by mask + OA or adjuvant Spontaneous ventilation during airway: absent Sedation level during airway: deep Final airway details: Final airway type: endotracheal airway Tube type: ETT ETT size: 7.0 mm Cuffed: yes Technique used for successful ETT placement: video laryngoscopy Devices/Methods used in placement: intubating stylet Insertion site: oral Video blade type: Glidescope Blade size: 3 Cormack-Lehane (video): grade I - full view of glottis Cuff volume: 6 mL Cuff inflated with: air ETT to teeth: 21 cm Placement verified by: auscultation and CO2 detection Airway secured with: silk tape Number of attempts: 1 Additional comments: Atraumatic, dentition unchanged. Performed by Nick HERNANDEZ us Alfie Babb MD ANESTHESIA ORDERABLES Final R esult * XR Chest Pa Lateral 2 Views (04/10/2025 4:09 PM CDT) Anatomical Region Laterality Modality Body, Chest N/A Computed Radiogr aphy 04/11/2025 1:42 PM CDT Narrative 04/11/2025 1:45 PM CDT EXAM DESCRIPTION: XR CHEST PA LATERAL 2 VIEWS REASON FOR STUDY: cough Pt sts chronic cough. SOB. Reports she is a smoker. Sts she is having surgery on 04/17/25. TECHNIQUE: PA and lateral radiographic view(s) of the chest. COMPARISON: 12/19/2023, 03/31/2022. FINDINGS: LUNGS: There is diffuse interstitial prominence and coarsening of interstitial markings within the lungs, similar to the most recent prior study. This is likely in part due to chronic interstitial disease. Superimposed edema or interstitial infiltrates not excluded. Correlate with clinical presentation. There are a few patchy opacities within the perihilar regions and lung bases for which airspace disease can not be excluded. No effusion or pneumothorax. HEART/MEDIASTINUM: Cardiac silhouette is at the upper limits of normal in size. Pulmonary vascularity mildly enlarged. The trachea is midline. LINES/TUBES: None. BONES: No acute osseous abnormality. IMPRESSION: 1. Interstitial prominence and coarsening of interstitial markings likely due to a component of chronic lung disease. Superimposed edema or interstitial infiltrate not excluded. Correlate with clinical presentation. Pulmonary vascularity is mildly enlarged with borderline cardiomegaly. THIS IS AN ELECTRONICALLY VERIFIED FINAL REPORT 04/11/2025 1:45 PM - Electronically signed by Dolores Draper M.D. TW T: Report ID: [id number] Reading Location: [place] [address] Procedure Note Dolores Draper MD - 04/11/2025 EXAM DESCRIPTION: XR CHEST PA LATERAL 2 VIEWS REASON FOR STUDY: cough Pt sts chronic cough. SOB. Reports she is a smoker. Sts she is havingsurgery on 04/17/25. TECHNIQUE: PA and lateral radiographic view(s) of the chest. COMPARISON: 12/19/2023, 03/31/2022. FINDINGS: LUNGS: There is diffuse interstitial prominence and coarseningof interstitial markings within the lungs, similar to the most recent prior study. This is likely in part due to chronic interstitial disease. Superimposed edema or interstitial infiltrates not excluded. Correlatewith clinical presentation. There are a few patchy opacities within theperihilar regions and lung bases for which airspace disease can not be excluded. No effusion or pneumothorax. HEART/MEDIASTINUM: Cardiac silhouette is at the upper limits of normal in size. Pulmonary vascularity mildly enlarged. The trachea is midline. LINES/TUBES: None. BONES: No acute osseous abnormality. IMPRESSION: 1. Interstitial prominence and coarsening of interstitial markingslikely due to a component of chronic lung disease. Superimposed edema or interstitial infiltrate not excluded. Correlate with clinicalpresentation. Pulmonary vascularity is mildly enlarged with borderline cardiomegaly. THIS IS AN ELECTRONICALLY VERIFIED FINAL REPORT 04/11/2025 1:45 PM - Electronically signed by Dolores Draper M.D. TW T: Report ID: [id number] Reading Location: [id number] us Luisa VALDIVIA IMG XR PROCEDURES Final Re sult * Uric acid (04/10/2025 3:50 PM CDT) Uric acid 5.9 2.5 - 7.0 mg/dL Blood 04/10/2025 3:50 PM CDT 04/10/2025 4:11 PM CDT Luisa VALDIVIA LAB BLOOD ORDERABLES Final Result SYED [facility] Department [place] [address] * MRI Brain WO Contrast (03/29/2025 5:33 PM CDT) Anatomical Region Laterality Modality Head and Neck N/A Magnetic Resonan ce 03/29/2025 5:38 PM CDT Narrative 03/29/2025 5:41 PM CDT EXAM DESCRIPTION: MRI BRAIN WO CONTRAST REASON FOR STUDY: Transient ischemic attack (TIA) Transient ischemic attack (TIA) TECHNIQUE: Multiplanar imaging includes non-contrasted T1, T2, FLAIR, and diffusion with ADC map sequences. Additional sequence(s) sensitive to blood products. Images stored on PACS. COMPARISON: CT head without contrast dated 03/29/2025. FINDINGS: There is no diffusion restriction to suggest acute/recent infarction. No parenchymal susceptibility signal to indicate blood degradation products. The size and configuration of the ventricles and sulci normal for the patient's age. There is no hydrocephalus. The basilar cisterns are maintained. Inferior tip of the cerebellar tonsils extend to the foramen magnum. The occasional subcortical and periventricular white matter T2/FLAIR hyperintense signal in the bilateral cerebral hemispheres is nonspecific compatible with minor chronic microvascular ischemic type change in a patient of this age. The bilateral globes are grossly symmetric. The imaged paranasal sinuses are predominantly clear. There is prominence of the posterior pharyngeal soft tissues, please correlate with direct visualization. Bilateral mastoid T2 hyperintense fluid signal. IMPRESSION: 1. There is no acute infarction. 2. Other findings as above. THIS IS AN ELECTRONICALLY VERIFIED FINAL REPORT 03/29/2025 5:41 PM - Electronically signed by Macario Mendez D.O. AP T: Report ID: [id number] Reading Location: [place] [address] Procedure Note Macario Mendez, DO - 03/29/2025 EXAM DESCRIPTION: MRI BRAIN WO CONTRAST REASON FOR STUDY: Transient ischemic attack (TIA) Transient ischemic attack (TIA) TECHNIQUE: Multiplanar imaging includes non-contrasted T1, T2, FLAIR, and diffusion with ADC map sequences. Additional sequence(s) sensitive [employer] products. Images stored on PACS. COMPARISON: CT head without contrast dated 03/29/2025. FINDINGS: There is no diffusion restriction to suggest acute/recent infarction. No parenchymal susceptibility signal to indicate blood degradationproducts. The size and configuration of the ventricles and sulci normal for the patient's age. There is no hydrocephalus. The basilar cisterns are maintained. Inferior tip of the cerebellar tonsils extend to the foramen magnum. The occasional subcortical and periventricular white matter T2/FLAIR hyperintense signal in the bilateral cerebral hemispheres is nonspecific compatible with minor chronic microvascular ischemic type change in apatient of this age. The bilateral globes are grossly symmetric. The imaged paranasal sinusesare predominantly clear. There is prominence of the posterior pharyngeal soft tissues, please correlate with direct visualization. Bilateral mastoid T2 hyperintense fluid signal. IMPRESSION: 1. There is no acute infarction. 2. Other findings as above. THIS IS AN ELECTRONICALLY VERIFIED FINAL REPORT 03/29/2025 5:41 PM - Electronically signed by Macario Mendez D.O. AP T: Report ID: [id number] Reading Location: [place] [address] us Rehab Wong SO IMG MRI PROCEDURES Final Result * Drugs of Abuse Screen, Urine without Confirmation (03/29/2025 3:14 PM CDT) [facility] Amphetamine, ur Not Detected CutOff 500ng/mL Comment: Interpretive Data - Amphetamines: Samples containing greater than 500 ng/mL d-methamphetamine or other cross-reacting amphetamine compounds are reported as positive. Amphetamine immunoassays are subject to significant false positive rates due to cross-reactivity of non-amphetamine drugs. Confirmatory testing required for definitive results. Current Interpretive Data was last reviewed 2023. Barbiturates, ur Not Detected CutOff 200ng/mL [facility] Comment: Interpretive Data - Barbiturates: Samples containing greater than 200 ng/mL secobarbital or other cross-reacting barbiturate compounds are reported as positive. False positive and false negative results are possible. Confirmatory testing required for definitive results. Current Interpretive Data was last reviewed 2023. Benzodiazepines, ur Not Detected CutOff 100ng/mL [facility] Comment: Interpretive Data - Benzodiazepines: Samples containing greater than 100 ng/mL nordiazepam or other cross-reacting compounds are reported as positive. False positive and false negative results are possible. Confirmatory testing required for definitive results. Current Interpretive Data was last reviewed 2023. Cannabinoids, ur Not Detected CutOff 50 ng/mL [facility] Comment: Interpretive Data - Cannabinoids: Samples containing greater than 50 ng/mL delta-9 THC -COOH or other cross- reacting compounds are reported as positive. False positive and false negative results are possible. Confirmatory testing required for definitive results. Current Interpretive Data was last reviewed 2023. Cocaine, ur Not Detected CutOff 150ng/mL [facility] Comment: Interpretive Data - Cocaine: Samples containing greater than 150 ng/mL benzoylecgonine or other cross- reacting compounds are reported as positive. False positive and false negative results are possible. Confirmatory testing required for definitive results. Current Interpretive Data was last reviewed 2023. Fentanyl, Ur Not Detected CutOff 5 ng/mL [facility] Comment: Interpretive Data - Fentanyl: Samples containing greater than 5 ng/mL norfentanyl, fentanyl, or other cross-reacting fentanyl compounds are reported as positive. False positive and false negative results are possible. Confirmatory testing required for definitive results. Current Interpretive Data was last reviewed 2023. Methadone, ur Not Detected CutOff 300ng/mL [facility] Comment: Interpretive Data - Methadone: Samples containing greater than 300 ng/mL d,l-methadone or other cross-reacting compounds are reported as positive. False positive and false negative results are possible. Confirmatory testing required for definitive results. Current Interpretive Data was last reviewed 2023. Opiates, ur Not Detected CutOff 300ng/mL SYED Comment: Interpretive Data - Opiates: Samples containing greater than 300 ng/mL morphine or other cross-reacting compounds are reported as positive. False positive and false negative results are possible. Confirmatory testing required for definitive results. Current Interpretive Data was last reviewed 2023. Oxycodone, ur Not Detected CutOff 100ng/mL [facility] Comment: Interpretive Data - Oxycodone: Samples containing greater than 100 ng/mL oxycodone or other cross-reacting compounds are reported as positive. False positive and false negative results are possible. Confirmatory testing required for definitive results. Current Interpretive Data was last reviewed 2023. Phencyclidine, ur Not Detected CutOff 25 ng/mL [facility] Comment: Interpretive Data - Phencyclidine: Samples containing greater than 25 ng/mL phencyclidine or other cross-reacting compounds are reported as positive. False positive and false negative results are possible. Confirmatory testing required for definitive results. Current Interpretive Data was last reviewed 2023. Urine Creatinine 37 mg/dL [facility] Comment: Interpretive Data Urine Creatinine: < 10 mg/dL is extremely dilute = or > 10 but < 20 mg/dL is dilute = or > 20 mg/dL is normal Current Interpretive Data was last revised on 2017. Urine 03/29/2025 3:14 PM CDT 03/29/2025 3:18 PM CDT Narrative [facility] - 03/29/2025 4:07 PM CDT Drug of Abuse screening is performed by immunoassay for medical purposes only. This is not to be used for Pain Management purposes. us Rehab Wong SO LAB URINE ORDERABLES Final Resu lt SYED [id number] [facility] Department [place] [address] * CASEY screen w/rflx LEONARDA+dsDNA (03/29/2025 1:57 PM CDT) CASEY Negative Comment: Interpretive Data Normal range for CASEY Qualitative Antibody = Negative. 1. CASEY is performed using indirect immunofluorescence against HEp-2 cells 2. CASEY titers are performed on all positive qualitative results. 3. A significantly positive CASEY result is defined as a positive nuclear fluorescence at a titer of 1:80 or greater. 4. 15% of normal people above age 65 have significantly positive CASEY results. 5% or less of normal people age 65 or under have significantly positive CASEY results. Current interpretive data was last revised on 2020. Testing performed by: [facility], [address] [facility], [place]., [address] Blood 03/29/2025 1:57 PM CDT 03/29/2025 5:32 PM CDT us Alfie Patterson MD LAB BLOOD ORDERABLES Final Result Performing Organization Address City/[facility]/ZIP Co de Phone Number [address] [place] [address] * Troponin T high-sensitivity 2-hour (03/29/2025 1:57 PM CDT) Trop T hs 8 <=14 ng/L Comment: Interpretive Data For further hscTnT resources including the diagnostic algorithm and an aid in interpretation, copy and paste this link: https://nrl.testcatalog.org/show/hsTrop Current Interpretive Data last revised 2020. Trop T hs delta 1 ng/L [facility] Trop T hs interp Insignificant [facility] Blood 03/29/2025 1:57 PM CDT 03/29/2025 2:01 PM CDT us Amy VALDIVIA LAB BLOOD ORDERABLES Final Re sult Performing Organization Address City/[facility]/ZIP Co de Phone Number [address] [employer] [place], [place] [id number] * Erythrocyte sedimentation rate (03/29/2025 1:57 PM CDT) [facility] Erythrocyte sedimentation rate 12 1 - 30 mm/hr Blood 03/29/2025 1:57 PM CDT 03/29/2025 2:01 PM CDT Alfie Patterson MD LAB BLOOD ORDERABLES Final Result Performing Organization Address [facility] de Phone Number [address] [address] * TSH (03/29/2025 1:57 PM CDT) [facility] Thyroid Stimulating Hormone 2.18 0.30 - 4.20 mcIUnit/mL Blood 03/29/2025 1:57 PM CDT 03/29/2025 2:01 PM CDT Alfie Patterson MD LAB BLOOD ORDERABLES Final Result Performing Organization Address [facility] de Phone Number [address] [address] * (ABNORMAL) Vitamin B1 (03/29/2025 1:57 PM CDT) [facility] Thiamine (Vit B1) 203(H) 70 - 180 nmol/L [facility] Comment: ADDITIONAL INFORMATION This test was developed and its performance characteristics determined by [facility] in a manner consistent with CLIA requirements. This test has not been cleared or approved by the U.S. Food and Drug Administration. Test Performed by: [facility] - [address] [address] [place] Supervisor: Maverick Tello Ph.D.; CLIA# [id number] Blood 03/29/2025 1:57 PM CDT 03/29/2025 2:01 PM CDT Narrative SYED - 03/31/2025 1:18 PM CDT received in lab; 03/30/2025 13:32:12 CDT [id number] Alfie Patterson MD LAB BLOOD ORDERABLES Final Result Performing Organization Address [facility] de Phone Number SYED [address] [address] [facility] * Vitamin B6 (03/29/2025 1:57 PM CDT) Pathologist [facility] Pyridoxal phosphate (Vit B6) 6 5 - 50 mcg/L [facility] Comment: ADDITIONAL INFORMATION This test was developed and its performance characteristics determined by [facility] in a manner consistent with CLIA requirements. This test has not been cleared or approved by the U.S. Food and Drug Administration. Test Performed by: [facility] [place] [address] [place] [address] Supervisor: Maverick Tello Ph.D.; CLIA# [id number] Blood 03/29/2025 1:57 PM CDT 03/29/2025 2:00 PM CDT Narrative [facility] - 04/04/2025 12:39 AM CDT received in lab; 03/30/2025 13:32:12 CDT [id number] Alfie Patterson MD LAB BLOOD ORDERABLES Final Result Performing Organization Address [facility] Co de Phone Number NATHALIE[address] [place] [address] [facility] * Vitamin B12 (03/29/2025 1:57 PM CDT) [facility] Vitamin B12 392 230 - 1,250 pg/mL Blood 03/29/2025 1:57 PM CDT 03/29/2025 2:01 PM CDT Alfie Patterson MD LAB BLOOD ORDERABLES Final Result Performing Organization Address [facility]/ZIP Co de Phone Number SYED [address] [facility] [place] [address] * POCT hCG, urine (03/29/2025 12:39 PM CDT) HCG, ur, POC Negative Negative Lot Number [id number] QC Backgroud Clear Acceptable QC Control Line Acceptable Urine 03/29/2025 12:3 9 PM CDT Rehab [facility] SO POINT OF CARE TEST ORDERABLES F inal Result * (ABNORMAL) Urinalysis reflex to microscopic and culture Urine (03/29/2025 12:37 PM CDT) Color, ur Yellow Yellow Clarity, ur Clear Clear [facility] Specific gravity, ur 1.018 1.003 - 1.030 [facility] pH, urine 5.5 [facility] Comment: Interpretive Data U rine pH is affected by diet, medications, systemic acid-base disturbances, and renal tubular function. pH may affect urinary stone formation. For example, urine pH below 6.0 may help reduce the tendency for calcium phosphate stones and pH greater than 6.0 may reduce the tendency for uric acid stone formation. Source: [facility] Current Interpretive Data was last revised on 2017 Protein, ur ql Negative Negative [facility] Glucose, ur ql Negative Negative [facility] Ketones, ur Negative Negative [facility] Bilirubin, ur Negative Negative [facility] Blood, ur Negative Negative [facility] Urobilinogen, ur <2.0 <2.0 mg/dL [facility] Nitrite, ur Negative Negative [facility] Leukocyte esterase, ur 1+(A) Negative [facility] UA reflex comment Reflex to microscopic UA will be performed. [facility] Urine 03/29/2025 12:3 7 PM CDT 03/29/2025 12:43 PM CDT [facility] LAB MICROBIOLOGY - GENERAL ORDE CHAIM Final Result Performing Organization Address City/[facility]/ZIP Co de Phone Number SYED [address] [facility] [place] [address] * (ABNORMAL) Urinalysis, microscopic only (03/29/2025 12:37 PM CDT) WBC, ur 0-5 0 - 5 /HPF RBC, ur 0-2 0 - 2 /HPF [facility] Epithelial cells, squamous, ur 1-5 0 - 5 /HPF [facility] Mucous, ur Present(A) [facility] Culture Reflex Comment Reflex conditions for urine culture (WBC >10) not met. [facility] Urine 03/29/2025 12:3 7 PM CDT 03/29/2025 12:43 PM CDT Amy VALDIVIA LAB URINE ORDERABLES Final Re sult [facility] [address] [facility] Department [place] [address] * ECG 12 lead (03/29/2025 12:32 PM CDT) Ventricular Rate EKG/Min 74 BPM [facility] Atrial Rate 74 BPM [facility] NC-Interval (MSEC) 156 ms [facility] QRS-Interval (MSEC) 72 ms [facility] QT-Interval (MSEC) 416 ms [facility] QTc 461 ms [facility] P [place] 36 degrees [facility] R [place] -44 degrees [facility] T [place] 18 degrees [facility] Diagnosis Normal sinus rhythm Possible Left atrial enlargement Left axis deviation Cannot rule out Anterior infarct (cited on or before 18-OCT-2023) Abnormal ECG When compared with ECG of 15-FEB-2024 13:17, No significant change was found Confirmed by KOLE HELLER M.D. ([id number]) on 03/29/2025 2:35:09 PM [facility] 03/29/2025 12:3 2 PM CDT 03/29/2025 2:35 PM CDT us Tom Back MD ECG ORDERABLES Final Result Performing Organization Address City/[facility]/ZIP Co de Phone Number [facility] * CT Head WO Contrast (03/29/2025 12:29 PM CDT) Anatomical Region Laterality Modality Head and Neck N/A Computed Tomogra phy 03/29/2025 12:3 8 PM CDT Narrative 03/29/2025 12:47 PM CDT EXAM DESCRIPTION: CT HEAD WO CONTRAST REASON FOR STUDY: dizziness from PCP office to r/o mini-stroke and aflutter. Pt reports hx of DM, heart disease, HTN and HLD. Pt reports PCP is concerned for possible TIA due to by sx of intermittent dizziness, slurred speech and weakness x1 week. Pt also notes CP this morning that has since subsided. Pt also reports pain/numbness to bilat LE intermittently x2 weeks. TECHNIQUE: Axial images acquired through the brain without intravenous contrast. Images stored on PACS. Automated exposure control was used as a dose optimization technique for this examination. COMPARISON: None FINDINGS: BRAIN: No hemorrhage, edema or mass effect. No recent infarct. Normal white matter. EXTRA-AXIAL SPACES: No fluid collections. No masses. CALVARIUM: No fracture. SINUSES/MASTOIDS: No fluid or mucosal thickening. ORBITS: No significant abnormality. OTHER: No other significant abnormality. IMPRESSION: No acute intracranial findings. THIS IS AN ELECTRONICALLY VERIFIED FINAL REPORT 03/29/2025 12:47 PM - Electronically signed by Joesph GILLIAM T: Report ID: [id number] Reading Location: [id number] Procedure Note Joesph Anderson MD - 03/29/2025 EXAM DESCRIPTION: CT HEAD WO CONTRAST REASON FOR STUDY: dizziness from PCP office to r/o mini-stroke and aflutter. Pt reports hx of DM,heart disease, HTN and HLD. Pt reports PCP is concerned for possible TIA dueto by sx of intermittent dizziness, slurred speech and weakness x1 week. Ptalso notes CP this morning that has since subsided. Pt also reportspain/numbness to bilat LE intermittently x2 weeks. TECHNIQUE: Axial images acquired through the brain without intravenous contrast. Images stored on PACS. Automated exposure control was used asa dose optimization technique for this examination. COMPARISON: None FINDINGS: BRAIN: No hemorrhage, edema or mass effect. No recent infarct. Normal white matter. EXTRA-AXIAL SPACES: No fluid collections. No masses. CALVARIUM: No fracture. SINUSES/MASTOIDS: No fluid or mucosal thickening. ORBITS: No significant abnormality. OTHER: No other significant abnormality. IMPRESSION: No acute intracranial findings. THIS IS AN ELECTRONICALLY VERIFIED FINAL REPORT 03/29/2025 12:47 PM - Electronically signed by Joesph Anderson M.D. RB T: Report ID: [id number] Reading Location: [place] [address] [address] PROCEDURES Final Result * Troponin T high-sensitivity series (baseline, 2hr, 4hr, 6hr) (03/29/2025 12:19 PM CDT) Pathologist [facility] Trop T hs 7 <=14 ng/L Comment: Interpretive Data For further hscTnT resources including the diagnostic algorithm and an aid in interpretation, copy and paste this link: https://nrl.testcatalog.org/show/hsTrop Current Interpretive Data last revised 2020. Blood 03/29/2025 12:1 9 PM CDT 03/29/2025 12:27 PM CDT Rehab Wong SO LAB BLOOD ORDERABLES Final [facility] lt [facility] [address] [facility] Department [place] [address] * eGFR (03/29/2025 12:19 PM CDT) eGFR 86 >=60 mL/min/1. 73 m2 Comment: Interpretive Data Reference Interval Normal >/= 90 mL/min/1.73m2 Mildly decreased* 60 - 89 mL/min/1.73m2 Mildly to moderately decreased 45 - 59 mL/min/1.73m2 Moderately to severely decreased 30 - 44 mL/min/1.73m2 Severely decreased 15 - 29 mL/min/1.73m2 Kidney Failure < 15 mL/min/1.73m2 *Relative to young adult level Estimated glomerular filtration rate is determined by the 2020 CKD-EPI equation recommended by the National Kidney Foundation (A Unifying Approach to GFR Estimation: Recommendations of the NKF-ASK Task Force on Reassessing the Inclusion of Race in Diagnosing Kidney Disease, JASN 2020). The CKD-EPI equation should not be used for patients with unstable renal function and has not been validated in children and those over 70. Current interpretive data was last reviewed 2021. Blood 03/29/2025 12:1 9 PM CDT 03/29/2025 12:27 PM CDT us Amy VALDIVIA LAB BLOOD ORDERABLES Final Re sult [facility] [address] [facility] Department [place] [address] * (ABNORMAL) Differential, auto (03/29/2025 12:19 PM CDT) Neutrophil abs 6.02 1.50 - 6.50 K/cumm Imm gran abs 0.07 0.00 - 0.10 K/cumm [facility] Lymphocyte abs 3.66(H) 0.80 - 3.30 K/cumm [facility] Monocyte abs 0.97(H) 0.20 - 0.80 K/cumm [facility] Eosinophil abs 0.47 0.00 - 0.50 K/cumm [facility] Basophil abs 0.05 0.00 - 0.10 K/cumm [facility] Neutrophil pct 53.6 % [facility] Comment: Interpretive Data Percent cell count reference ranges are not reported, since discordance with absolute values may lead to misinterpretation of CBC data. Current Interpretive Data was last revised on 2017. Imm gran pct 0.6 % [facility] Comment: Interpretive Data Percent cell count reference ranges are not reported, since discordance with absolute values may lead to misinterpretation of CBC data. Current Interpretive Data was last revised on 2017. Lymphocyte pct 32.6 % [facility] Comment: Interpretive Data Percent cell count reference ranges are not reported, since discordance with absolute values may lead to misinterpretation of CBC data. Current Interpretive Data was last revised on 2017. Monocyte pct 8.6 % [facility] Comment: Interpretive Data Percent cell count reference ranges are not reported, since discordance with absolute values may lead to misinterpretation of CBC data. Current Interpretive Data was last revised on 2017. Eosinophil pct 4.2 % [facility] Comment: Interpretive Data Percent cell count reference ranges are not reported, since discordance with absolute values may lead to misinterpretation of CBC data. Current Interpretive Data was last revised on 2017. Basophil pct 0.4 % [facility] Comment: Interpretive Data Percent cell count reference ranges are not reported, since discordance with absolute values may lead to misinterpretation of CBC data. Current Interpretive Data was last revised on 2017. Blood 03/29/2025 12:1 9 PM CDT 03/29/2025 12:27 PM CDT us Rehab Wong SO LAB BLOOD ORDERABLES Final Resu lt [place] [address] [facility] Department [place] [address] * (ABNORMAL) CBC with auto differential (03/29/2025 12:19 PM CDT) WBC 11.24(H) 3.80 - 9.90 K/cumm Hgb 14.4 11.9 - 15.5 g/dL [facility] Hct 44.4 35.6 - 45.5 % [facility] Plt 226 150 - 400 K/cumm [facility] MPV 12.4(H) 9.1 - 12.3 fL [facility] RBC 4.86 3.90 - 5.20 M/cumm [facility] MCV 91.4 81.3 - 96.4 fL [facility] MCH 29.6 27.1 - 33.3 pg [facility] MCHC 32.4 32.3 - 35.7 g/dL [facility] RDW CV 12.8 11.1 - 14.9 % [facility] RDW SD 42.3 35.7 - 48.1 fL [facility] NRBC abs 0.00 0.00 - 0.01 K/cumm SYED ALVARADO Blood Venous blood specimen / Unknown 03/29/2025 12:19 PM CDT 03/29/2025 12:27 PM CDT Narrative [facility] - 03/29/2025 12:30 PM CDT [facility] B[facility] Final Resu lt Performing Organization Address [facility] Co de Phone Number SYED [address] [address] * aPTT (03/29/2025 12:19 PM CDT) aPTT 23 22 - 37 sec Comment: Interpretive data aPTT test has not been evaluated for monitoring heparin therapy. The anti-Xa is the preferred test. Current interpretive data was last revised on 2019. Blood Venous blood specimen / Unknown 03/29/2025 12:19 PM CDT 03/29/2025 12:27 PM CDT Narrative [facility] - 03/29/2025 1:12 PM CDT Potential stroke [facility]. [facility] BLOOD ORDERABLES Final Resu lt Performing Organization Address [facility] de Phone Number NATHALIE[address] [address] * Protime-INR (03/29/2025 12:19 PM CDT) PT 12.80 12.00 - 14.60 sec INR 0.95 0.90 - 1.20 SYED ALVARADO Comment: Interpretive data Oral anticoagulant therapeutic ranges: Venous thromboembolism prophylaxis or treatment: 2.0-3.0 CARDIOLOGY Standard range: 2.0-3.0 High-intensity range: 2.5-3.5 Refer to indication-specific guidelines for appropriate target ranges for prosthetic heart valve replacement. Current interpretive data was last revised on 2019. Blood 03/29/2025 12:1 9 PM CDT 03/29/2025 12:27 PM CDT Rehab Wong SO LAB BLOOD ORDERABLES Final Resu lt [facility]ED [address] [facility] Department [place] [address] * Comprehensive metabolic panel (03/29/2025 12:19 PM CDT) Sodium 137 135 - 145 mmol/L Potassium, pl 4.3 3.3 - 4.9 mmol/L [facility] Chloride 104 97 - 110 mmol/L [facility] CO2 22 22 - 32 mmol/L [facility] Anion gap 11 2 - 15 mmol/L [facility] BUN 12 6 - 25 mg/dL [facility] Creatinine 0.81 0.60 - 1.10 mg/dL [facility] Glucose 98 70 - 199 mg/dL [facility] Comment: Interpretive Data Fasting glucose >/= 126 mg/dl is diagnostic for diabetes. Fasting is defined as no caloric intake for at least 8 hours. Fasting glucose between 100 mg/dl to 125 mg/dl is diagnostic of prediabetes. In a patient with classic symptoms of hyperglycemia or hyperglycemic crisis, a random glucose >/= 200 mg/dl is diagnostic for diabetes. In the absence of unequivocal hyperglycemia, results should be confirmed by repeat testing. The classification and Diagnosis of Diabetes Diabetes Care 202; 46: S19-S40. Current interpretive data was last revised 2022. Calcium 9.4 8.5 - 10.3 mg/dL [facility] Bilirubin, total 0.2 0.1 - 1.2 mg/dL [facility] Protein, pl 6.9 6.5 - 8.5 g/dL [facility] Albumin 4.0 3.5 - 5.0 g/dL [facility] Alk phos 85 40 - 130 Units/L [facility] ALT 15 7 - 45 Units/L [facility] AST 22 10 - 45 Units/L [facility] Blood Venous blood specimen / Unknown 03/29/2025 12:19 PM CDT 03/29/2025 12:27 PM CDT Narrative [facility] - 03/29/2025 1:00 PM CDT Potential Stroke Patient Rehab Wong SO LAB BLOOD ORDERABLES Final Resu lt YSED [address] [facility] Department [place] [address] * (ABNORMAL) POCT hemoglobin A1c (03/29/2025 10:31 AM CDT) Hemoglobin A1C, POC 6.3(A) 4.0 - 5.6 % Capillary blood 03/29/2025 1 0:31 AM CDT Luisa VALDIVIA POINT OF CARE TEST ORDERAB LES Final Result * (ABNORMAL) ECG 12 lead (03/29/2025) 03/29/2025 Narrative Luisa Villeda PA - 03/29/2025 10:16 AM CDT Dx: CP/diaphoresis 88bpm A-flutter with negative precoridal twaves Luisa VALDIVIA ECG ORDERABLES Edited Res ult - Final * Albumin Creatinine Ratio, Urine (12/25/2024 8:30 AM CDT) Creatinine, ur 90 20 - 275 mg/dL [facility] Microalbumin, ur 0.3 See Note: mg/dL [facility] Comment: Reference Range: Reference Range Not established Microalbumin/creat ratio 3 <30 mg/g creat [facility] Comment: The ADA defines abnormalities in albumin excretion as follows: Albuminuria Category Result (mg/g creatinine) Normal to Mildly increased <30 Moderately increased 30-299 Severely increased > OR = 300 The ADA recommends that at least two of three specimens collected within a 3-6 month period be abnormal before considering a patient to be within a diagnostic category. Urine 12/25/2024 8:30 AM CDT 12/27/2024 3:10 AM CDT Luisa VALDIVIA LAB URINE ORDERABLES Final Result [facility] [address] [id number] * (ABNORMAL) POCT lipid panel (12/25/2024 8:25 AM CDT) Cholesterol, POC 211 <200 MG/DL HDL, POC 5.6(A) >=40 mg/dL Triglycerides, POC 255(A) <=149 mg/dL LDL Cholesterol POC 123 <=129 mg/dL Non-HDL Cholesterol, POC 174 NONE mg/dL Cholesterol Total, POC 211(A) 30 - 199 mg/dL Capillary blood 12/25/2024 8 :25 AM CDT Luisa VALDIVIA POINT OF CARE TEST ORDERAB LES Final Result * DIABETES EYE EXAM (09/16/2024 2:22 PM CDT) SCRIBED DIABETIC DILATED EYE EXAM Normal Historical Provider HEALTH MAINTENANCE Edited Result - Final * Screening Mammogram Bilateral W Iain (10/15/2022 12:07 PM CDT) Anatomical Region Laterality Modality Breast Bilateral Mammography Impressions 10/19/2022 2:16 PM CDT BI-RADS ATLAS category (overall): 1 - Negative There is no mammographic evidence of malignancy. A 1 year screening mammogram is recommended. The patient has been or will be contacted. We recommend annual screening mammography for women at average risk of breast cancer beginning at age 40, based on guidelines of the [employer] (ACR Practice Parameter for the Performance of Screening and Diagnostic Mammography) and [employer]. For women with and elevated risk of breast cancer, please refer to the ACR Practice Parameter for specific screening recommendations. The patient will be entered into a reminder system with a target due date of 1 year for her next screening exam. Narrative 10/19/2022 2:16 PM CDT Screening Mammogram Bilateral W Iain: 10/15/22 The study was acquired using full field digital technology and interpreted from soft copy. 2D digital mammographic views, as well as 3D digital tomosynthesis were performed in the CC and MLO projections. CLINICAL: Breast cancer screening by mammogram. No relevant medical history has been documented for this patient. History of breast cancer in Mother's Sister. COMPARISONS: 03/22/2018 Breast Imaging Screening Outside Reference 09/27/2015 Breast Imaging Screening Outside Reference 11/01/2013 Breast Imaging Screening Outside Reference BREAST TISSUE: The breasts have scattered areas of fibroglandular density. FINDINGS: No suspicious masses, suspicious calcifications, or other suspicious findings are seen within either breast. There has been no suspicious change. Luisa VALDIVIA IMG MAMMO PROCEDURES Final Result * Colonoscopy (12/18/2020) Anatomical Region Laterality Modality Other Historical Provider ENDOSCOPY PROCEDURES Louise l Result from Last 3 Months or Most Recently Relevant to Health Maintenance Insurance [facility] Advance Directives For more information, please contact: [phone] * Full Code (Latest Code Status on File) Date Activated Date Inactivated Comments 04/17/2025 6:15 PM 04/18/2025 8:46 PM * Full Code Date Activated Date Inactivated Comments 12/19/2023 10:54 PM 12/24/2023 7:09 PM * Full Code Date Activated Date Inactivated Comments 08/26/2022 11:57 AM 08/30/2022 2:01 PM * Full Code Date Activated Date Inactivated Comments 04/01/2022 3:52 PM 04/02/2022 6:26 PM Care Teams Tubing Supervisor Relationship Specialty Start Date End Date Luisa Villeda PA [address] [facility] [address] [place] [address] PCP - General Internal Medicine 07/08/21 Dainel العراقي MD [address] [place] [address] Consulting Physician General Surgery 04/17/25 Rafael Haynes MD [address] [place] [address] Referring Physician Cardiology 04/18/25
[2025-05-13 21:31] VITALS: BP 153/101; PULSE 105; RESP 20; TEMP 36.6; O2SAT 95
--- NOTE | 2025-05-13 21:42 | ED_ITS ---
HPI - Dental/Oral General Chief complaint: Dental/Oral Stated complaint: abscessed tooth Time Seen by Provider: 05/13/25 21:31 Source: patient Mode of arrival: ambulatory Limitations: no limitations History of Present Illness HPI Narrative: This is a 54-year-old female with no significant past medical history who presents the ED for dental pain. Patient states that over the past 10 days, she has had worsening left maxillary dental pain that has been worsening over the past couple days. She states that she has had Crohn's in past but these have fallen out. She has had worsening swelling to her face since then. Denies fevers. She is trying to get in with an oral surgeon but has not established care yet. She was trying Tylenol and ibuprofen that was initially helping but has no longer help. Related Data Allergies Allergy/AdvReac Type Severity Reaction Status Date / Time Penicillins Allergy Mild HIVES Verified 05/13/25 21:27 Review of Systems Review of Systems: Gen.: Denies fevers or chills Eyes: Denies eye pain or visual change ENT: Denies congestion Respiratory: Denies shortness of breath or cough CV: Denies chest pain or palpitations GI: Denies abdominal pain nausea, emesis or diarrhea denies burning, urgency, frequency or hematuria Musculoskeletal: Denies back pain or muscle pain Neuro: Denies numbness, tingling, weakness or focal weakness Skin: Denies rash Except as documented, all other systems reviewed and negative Exam Narrative: APPEARANCE: No acute distress, nontoxic, resting in bed HEENT: Normocephalic, atraumatic, OMM. Very poor dentition with dental fractures scattered throughout but most notably in the left maxillary region, no areas of fluctuance, no drainage RESPIRATORY: No respiratory distress CARDIOVASCULAR: Appears well perfused ABDOMINAL: Nondistended MUSCULOSKELETAl: Moves all extremities. No obvious deformities NEURO: Awake and alert. SKIN:: Warm, dry. No rashes lesions or abrasions PSYCHIATRIC: Normal affect/mood, Course Vital Signs Vital signs: Vital Signs Temperature 97.9 F 05/13/25 21:31 Pulse Rate 105 H 05/13/25 21:31 Respiratory Rate 20 05/13/25 21:31 Blood Pressure 153/101 H 05/13/25 21:31 Pulse Oximetry 95 05/13/25 21:31 Oxygen Delivery Room Air 05/13/25 21:31 Temperature 97.9 F 05/13/25 21:31 Pulse Rate 91 05/13/25 22:05 Respiratory Rate 16 05/13/25 22:05 Blood Pressure 125/74 05/13/25 22:05 Pulse Oximetry 96 05/13/25 22:05 Oxygen Delivery Room Air 05/13/25 21:31 MDM - Dental/Oral MDM Narrative Medical decision making narrative: 54-year-old female Presenting for dental pain. On initial evaluation patient was in no acute distress afebrile, hemodynamic stable. Differentials include but are not limited to: Dental fracture, dental abscess pulpitis Notable exam findings: Very poor dentition with multiple dental fractures There is no areas fluctuance so there is nothing to drain. Patient will be given a prescription for Augmentin and [place]. She was educated on Tylenol and ibuprofen use. She was advised to follow-up with oral surgery or dentistry in the next week if able. Patient was agreeable to this plan. Given strict return precautions. Medical Records Attestation: I reviewed the patient's medical records. Discharge Plan Discharge Clinical Impression: Acute pulpitis Patient Disposition: Home Condition: Stable Instructions: Antibiotic Form, Toothache (ED) Additional Instructions: Take Augmentin and [place] as prescribed. He may take Tylenol and ibuprofen for the pain as well. Follow-up with dentistry and Oral surgery for further evaluation. Return to ED for any new or worsening symptoms. Patient Language: Austrian Prescriptions: New hydrocodone-acetaminophen 5-325 mg tablet 1 tablet PO Q8H PRN (Reason: pain (scale score 7-10)) Qty: 12 0RF amoxicillin-pot clavulanate 875-125 mg tablet 1 tablet PO Q12H 7 Days Qty: 14 0RF Follow-up/Referrals: Ronal,SKIP Moran [Primary Care Provider, Unknown]
[2025-05-13] MEDS: HYDROcodone/acetaminophen (*CRX) 5-325 MG TABLET 1 TAB PO (21:46)
[2025-05-13] MEDS: KETOROLAC 30 MG/ML VIAL (*BKC) IM (21:48)
--- OUTSIDE RECORDS SUMMARY | 2025-05-13 21:55 | XMS_ITS | Encounter Summary ---
Author Organization [facility] Healthcare Address [address] [place] [address] Care Team Providers Care Road Inspector Name Role Phone Luisa Villeda Primary Care Provider [phone] Daniel العراقي MD Unavailable [phone] Rafael Haynes MD Unavailable Encounter Details Date Type Department Care Team (Late st Contact Info) Description 04/10/2025 Results Follow-Up [facility] Family Medicine [address] [place] [address] Luisa Villeda PA [address] [place] [address] Uric acid, XR Chest Pa Lateral 2 Views Social History Tobacco Use Types Packs/Day Years Used Date Smoking Tobacco: Some Days Cigarettes 0.5 30 Smokeless Tobacco: Never Comments:Started smoking at age 13 1-2 currently heaviest ppd hx one pack Alcohol Use Standard Drinks/Week Comments Never 0 (1 standard drink = 0.6 oz pur e alcohol) [facility] Utilities Answer Date Recorded In the past 12 months has [employer], gas, oil, or water company threatened to [...] often do you attend chur ch or orthodoxy services? Never 12/20/2023 Do you belong to any clubs o r organizations such as buddhist groups, unions, fraternal or athletic groups, or [...] place to sleep or slept in a [place] facility (including now)? No 08/27/2022 PHQ-9 Answer Date [...] any time in the past 12 m [facility], were you homeless or living in a [place] facility (including now)? No 12/20/2023 AUDIT-C Answer Date [...] on file Legal Sex Female 2:19 AM [facility]INNER Gender Identity Not on file Sexual Orientation Not on file documented as of this encounter Functional Status * Pina Fall Risk Question Answer Date of Assessment Author History of Falling 0 04/10/2025 10:58 AM CD T Hilda Godoy RN Secondary Diagnosis 15 04/10/2025 10:58 AM Hilda Cheung, private tutors and teachers Aids 0 04/10/2025 10:58 AM Hilda Garcia [...] Patient does not drink 04/10/2025 11:15 AM RODRGIUEZT Hilda Godoy, DAIJA Q3: How often do you have six or more drinks on one occasion? Never 04/10/2025 11:15 AM CDT Hilda Godoy, DAIJA documented as of this encounter Plan of Treatment Upcoming Encounters Date Type Department Care Team (Late st Contact Info) Description 06/05/2025 8:00 AM [facility] Hospital Encounter [facility] [address] [place] [id number] Paula Lugo MD [address] [place] [address] [phone] 06/05/2025 8:00 AM [facility]NER - 06/05/2025 8:30 AM [facility] Surgery [facility] [address] [place] [id number] Paula Lugo MD [address] [place] [address] [phone] COLONOSCOPY Scheduled Procedures Name Priority Associated Diagnoses Date/Ti me COLONOSCOPY hx of polyps 06/05/2025 8:00 AM [facility]INNER documented as of this encounter Visit Diagnoses Not on filedocumented in this encounter Care Teams Road Inspector Relationship Specialty Start Date End Date Luisa Villeda PA [address] [facility] [address] [place] [address] PCP - General Internal Medicine 07/08/21 Daniel العراقي MD [address] [place] [id number] Consulting Physician General Surgery 04/17/25 [place] [address] [place] [address] Referring Physician Cardiology 04/18/25 documented as of this encounter
--- OUTSIDE RECORDS SUMMARY | 2025-05-13 21:55 | XMS_ITS | Clinical Summary ---
Author Organization [facility] Address [address] [place] [address] Care Team Providers Care Boilermaker'S Assistant Name Role Phone Luisa Villeda Primary Care Provider [phone] Allergies Active Allergy Reactions Criticality Noted Date [...] independently General No Laura Bates, RN Insurance [place] Advance Directives * Full Code (Latest Code Status on File) Date Activated Date Inactivated Comments 11/05/2021 5:23 AM 11/07/2021 8:28 PM Care Teams Boilermaker'S Assistant Relationship Specialty Start Date End Date Luisa Villeda PA [address] [place] [address] PCP - General PHYSICIAN ELECTRIC TAPE SLITTER 10/15/21
--- OUTSIDE RECORDS SUMMARY | 2025-05-13 21:55 | XMS_ITS | Clinical Summary ---
Author Organization [facility] Address [address] [place] [address] Care Team Providers Care Director Food And Beverage Name Role Phone Munira Rodarte MD Primary Care Provider Source Comments [facility],non-owned Affiliates and Associated Physician Practices is amultiple site organization consisting of ambulatory clinics and hospital sitesin [place], [place], [place] and [place]. This disclosure is being madepursuant to the Care Everywhere program and may not contain all information available regarding this patient. Last updated 18.[facility] [employer] Allergies No known active allergies Medications * Be aware that medications may not be up to date on this document. Alwaysverify current medications with the patient. ALBUTEROL SULFATE HFA IN Activ e albuterol HFA (PROVENTIL;VENT JACOB;PROAIR) 108 (90 BASE) MCG/ACT inhaler Inhale 2 puffs by mouth every 6 hours as needed Active cetirizine (ZYRTEC) 10 MG tablet Take 10 mg by mouth once daily Active DULoxetine (CYMBALTA) 60 MG capsule Take 60 mg by mouth once daily Active DULoxetine (CYMBALTA) 30 MG capsule Take 30 mg by mouth once daily Active magnesium 500 MG tablet Take 500 mg by mouth once daily Active PROPRANOLOL HCL PO Take 30 mg by mouth 3 times daily Active simvastatin (ZOCOR) 20 MG tablet Take 20 mg by mouth at bedtime Active Cholecalciferol ([employer] VIT D 5000 HIGH-POTENCY PO) Active ALPRAZolam (XANAX) 1 MG tablet Take 1 mg by mouth once daily Active raNITIdine (ZANTAC) 300 MG tablet Take 300 mg by mouth once daily Active losartan (COZAAR) 50 MG tablet Take 50 mg by mouth once daily Active Polyethyl Glycol-Propyl Glycol (SYSTANE OP) Active APPLE CIDER VINEGAR PO Take 900 mg by mouth once daily Active Family History Medical History Relation Name Comments Depression Mother Relation Name Status Comments Father Mother Alive Social History Tobacco Use Types Packs/Day Years Used Date Smoking Tobacco: Every Day Cigarettes 0.5 25 Smokeless Tobacco: Never Tobacco Cessation:Ready to Q uit: No; Counseling Given: No Alcohol Use Standard Drinks/Week Comments No 0 (1 standard drink = 0.6 oz pur e alcohol) Comments No Sex and Gender Information Value Date Recorded Sex Assigned at Not on file Legal Sex Female 6:34 AM GEAR ROOM KEEPER Gender Identity Not on file Sexual Orientation Not on file Last Filed Vital Signs Vital Sign Reading Time Taken Comments Blood Pressure 127/86 08/10/2018 9:35 AM GEAR ROOM KEEPER Pulse 66 08/10/2018 9:35 AM GEAR ROOM KEEPER Temperature - - Respiratory Rate - - Oxygen Saturation - - Inhaled Oxygen Concentration - - Weight 108 kg (238 lb) 08/10/2018 9:35 AM GEAR ROOM KEEPER Height 168.9 cm (5' 6.5) 08/10/2018 9:35 AM GEAR ROOM KEEPER Body Mass Index 37.84 08/10/2018 9:35 AM GEAR ROOM KEEPER Plan of Treatment Health Maintenance Due Date Last Done Comments COLOGUARD (AGES 45-75) - COL ON CA SCREENING 1970 COLON MONITORING 1970 COLONOSCOPY - COLON CA SCREENING 1970 CT COLONOGRAPHY - COLON CA SCREENING 1970 Colorectal Cancer Screening 1970 FIT - COLON CA SCREENING 1970 FLEX SIG - COLON CA SCREENING 1970 MAMMOGRAM 1970 HIV SCREENING 1985 HEPATITIS C SCREENING 06/24/1988 DTAP/TDAP/TD VACCINES (1 - Tdap) 1989 HEPATITIS B VACCINE (1 of 3 - 19+ 3-dose series) 1989 SCREENING FOR DIABETES 08/10/2018 PNEUMOCOCCAL VACCINE 50+ (1 of 1 - PCV) 2020 ZOSTER VACCINE (1 of 2) 2020 DEPRESSION SCREENING 07/05/2024 COVID-19 VACCINE (1 - 2024-2 5 season) 2025 INFLUENZA VACCINE (#1) 2025 HIB VACCINE Aged Out No longer eligi ble based on patient's age to complete this topic HPV VACCINE Aged Out No longer eligi ble based on patient's age to complete this topic MENINGOCOCCAL (Group B) VACC INE SHARED DECISION-MAKING Aged Out No longer eligibl e based on patient's age to complete this topic MENINGOCOCCAL GROUPS A/C/Y/W VACCINE Aged Out No longer eligible b ased on patient's age to complete this topic Insurance [facility] Care Teams Director Food And Beverage Relationship Specialty Start Date End Date Munira Rodarte MD [address] [place] [address] PCP - General 03/22/18
--- OUTSIDE RECORDS SUMMARY | 2025-05-13 21:55 | XMS_ITS | Clinical Summary ---
Author Organization [facility] Address [address] [place] [address] Phone Care Team Providers Care Dietary Clerk Name Role Phone GarthNaomi APRN, JAMILAH Primary [...] this topic Medical Devices Implanted Type Area Behavioral Health Rn Device Identifier Shelf Expiration Date Model / Serial / Lot Clip 235cm 11mm 360 Resolution Radiopaque - [id number] Implanted:Qty: 3 on 12/18/2020 by Ajit Wang DO at [facility] IMPLANT [employer] 08/30/2023 [id number] / [id number] / [id number] Insurance MEDICAID [employer] Advance Directives * Full Code (Latest Code Status on File) Date Activated Date Inactivated Comments 11/28/2016 10:05 AM 11/29/2016 1:51 PM CPR-Full Tr eatment: FULL ARREST: Attempt Resuscitation/CPR wit intubation and mechanical ventilation. PRE-ARREST: Use entire range of life support measures to stabilize the patient. Care Teams Dietary Clerk Relationship Specialty Start Date End Date Naomi Liang APRN, HEAD OF GEOGRAPHY [address] [place] [address] PCP - General Advanced Practice Nurse 12/15/20
--- OUTSIDE RECORDS SUMMARY | 2025-05-13 21:55 | XMS_ITS | Clinical Summary ---
Author Organization [facility] Address [address] [place] [address] Care Team Providers Care Sales Systems Engineer Name Role Phone Luisa Villeda Primary Care Provider [phone] Daniel العراقي MD Unavailable [phone] Rafael Haynes MD Unavailable Allergies Active Allergy [...] 05/09/2025 Assessment & Plan (05/09/2025 10:52 AM SUPERVISOR CONTACT LENS): The patient has a 40 pack-year history of smoking and is agreeable to proceed with a screening chest CT. She will follow up here in 2 months. Dyspnea on exertion 05/09/2025 Assessment & Plan (05/09/2025 10:52 AM SUPERVISOR CONTACT LENS): The patient is having shortness of breath [...] housing and needs. Also provided information on [place] legal assistance. If there is other things that we can help her with she may call at any time. Mental health disorder 06/04/2024 Assessment & Plan (09/24/2024 10:11 PM CDT): Patient has mental health concerns. Continue per Psychiatry Assessment & Plan (06/25/2024 10:54 PM SUPERVISOR CONTACT LENS): Continue per Dr. Hinojosa. She was instructed to start all of her mental health medications up so currently doing the Paxil, Cymbalta, Seroquel and has follow- up with Dr. Hinojosa in the near future. If she has any further symptoms she is to call Dr. Hinojosa's office her reach out to us. She verbalizes understanding Assessment & Plan (06/04/2024 9:19 PM SUPERVISOR CONTACT LENS): Patient is stopped all of her medications [...] pick her up and transport her to [facility] for evaluation and determination immediate care needs [...] 12/27/2023 Assessment & Plan (06/04/2024 9:20 PM SUPERVISOR CONTACT LENS): Encouraged smoking cessation. Discussed 3 minutes. Reviewed options for assistance with cessation. Reviewed superintendent marine oil terminal sequela associated with smoking. Pt declines assistance at this time but may contact the office at anytime for further help as they desire. Assessment & Plan (01/09/2024 8:34 PM CDT): Encouraged smoking cessation. Discussed 3 minutes. Reviewed options for assistance with cessation. Reviewed superintendent marine oil terminal sequela associated with smoking. Pt declines assistance [...] done. Assessment & Plan (08/04/2023 11:37 AM SUPERVISOR CONTACT LENS): Patient has noticed increased dysphagia with solids like meats and breads. She states she can feel something like a flap inside and she is concerned that there is a problem. Will refer to Dr. Noyola at [facility] for further evaluation and probable scope Acute cough 08/04/2023 Assessment & Plan (08/04/2023 11:37 AM SUPERVISOR CONTACT LENS): Patient had an acute cough over the [...] 08/04/2023 Assessment & Plan (08/04/2023 11:38 AM SUPERVISOR CONTACT LENS): Patient has been on acyclovir 400 mg [...] 07/26/2022 Assessment & Plan (05/09/2025 10:51 AM SUPERVISOR CONTACT LENS): The patient was originally diagnosed with obstructive sleep apnea in early 2021. She lost her CPAP unit about 2 years ago when she had to move suddenly. I have recommended proceeding with a nocturnal polysomnogram with a split night protocol if necessary and no MSLT. Assessment & Plan (06/01/2023 3:53 PM SUPERVISOR CONTACT LENS): Continue CPAP has all her needed supplies Coronary artery disease 05/05/2022 Assessment & Plan (07/26/2022 7:55 PM SUPERVISOR CONTACT LENS): Continue per Dr. Haynes. She will need [...] provided. Assessment & Plan (08/19/2021 1:19 PM SUPERVISOR CONTACT LENS): Obesity is unchanged. Discussed the patient's BMI. The BMI is above average. BMI management plan is completed. BMI Follow-up includes: nutrition counseling, exercise counseling and education provided. Snoring 08/12/2021 Assessment & Plan (09/13/2021 12:59 PM SUPERVISOR CONTACT LENS): Awaiting recommendations from Sleep Medicine Assessment & Plan (08/12/2021 1:39 PM SUPERVISOR CONTACT LENS): The patient presents with snoring and daytime hypersomnia. I have recommended proceeding with a nocturnal polysomnogram with a split night protocol if necessary and no MSLT. She will follow-up here in 3 months. Moderate persistent asthma without complication 08/12/2021 Assessment & Plan (08/12/2021 1:40 PM SUPERVISOR CONTACT LENS): The patient is currently using albuterol in the nebulizer 2 times per day. I will start Breo 1 puff daily and check full PFTs followed by a methacholine challenge if necessary as well as a chest x-ray. Mouth ulcers 07/20/2021 Assessment & Plan (07/20/2021 6:13 PM SUPERVISOR CONTACT LENS): Patient has had mouth ulcers. States she [...] 07/20/2021 Assessment & Plan (07/20/2021 6:13 PM SUPERVISOR CONTACT LENS): Per patient history chronic bilateral back pain. She is following with pain management. Will be extremely cautious with using any type of narcotics due to her abuse history. History of drug abuse in remission 07/20/2021 Overview (07/20/2021): Last used cocaine approx 2004 -- clean since Has abused vicodin, not currently taking, working with pain management Assessment & Plan (08/04/2023 11:36 AM SUPERVISOR CONTACT LENS): Last used cocaine in 2004. Has has a history of narcotic abuse but has not needed any prescriptive at this point. Using Cymbalta and other non drug medications for management. Assessment & Plan (01/26/2023 5:34 PM CDT): Last used cocaine approx 2004 -- clean since Has abused vicodin, not currently taking, working with pain management Assessment & Plan (07/26/2022 7:54 PM SUPERVISOR CONTACT LENS): Patient with history of drug abuse. Continues to remain drug-free. Involved in NA in AA. Assessment & Plan (04/19/2022 12:09 AM CDT): Patient continues to work diligently at remaining clean. Discussed her brother coming home and if this is going to be a trigger encouraged to try to fall and alternative living situation. Provided information regarding housing with [place] [facility] and [facility]. She also has good support with her [employer] groups. Assessment & Plan (07/20/2021 6:14 PM SUPERVISOR CONTACT LENS): Patient states has history of drug abuse with cocaine as well as Vicodin. Has been clean the cocaine since 2004. Will be very cautious with any type of narcotic or addictive medicine due to her history. She is in agreement with this. Vitamin D deficiency 07/20/2021 Assessment & Plan (07/20/2021 6:14 PM SUPERVISOR CONTACT LENS): Supplement Fatigue 07/20/2021 Assessment & Plan (06/01/2023 3:53 PM SUPERVISOR CONTACT LENS): Probably multifactorial. Check labs and followup to [...] worsen. Assessment & Plan (07/20/2021 6:14 PM SUPERVISOR CONTACT LENS): Probably multifactorial. Check labs and followup to re-evaluate Breast cancer screening by mammogram 07/20/2021 Assessment & Plan (01/09/2024 8:32 PM CDT): Mammogram provided Assessment & Plan (07/26/2022 7:54 PM SUPERVISOR CONTACT LENS): Mammogram order provided Assessment & Plan (07/20/2021 6:14 PM SUPERVISOR CONTACT LENS): Mammogram order provided Type 2 diabetes mellitus with hyperlipidemia 10/2021 Assessment & Plan (09/24/2024 10:11 PM CDT): Encouraged patient to follow low fat/low chol diet like the Mediterranean diet. Increase good fats in the diet. Increase exercise. Monitor labs as needed. Continue Zetia Assessment & Plan (06/25/2024 10:53 PM SUPERVISOR CONTACT LENS): Encouraged patient to follow low fat/low chol [...] Repatha Assessment & Plan (08/04/2023 11:34 AM SUPERVISOR CONTACT LENS): Encouraged patient to follow low fat/low chol diet like the Mediterranean diet. Increase good fats in the diet. Increase exercise. Monitor labs as needed. Continue pravastatin 40 Assessment & Plan (06/01/2023 3:53 PM SUPERVISOR CONTACT LENS): Encouraged patient to follow low fat/low chol [...] 20 Assessment & Plan (07/26/2022 7:53 PM SUPERVISOR CONTACT LENS): Encouraged patient to follow low fat/low chol [...] 40 Assessment & Plan (09/13/2021 12:55 PM SUPERVISOR CONTACT LENS): Encouraged patient to follow low fat/low chol diet like the Mediterranean diet. Increase good fats in the diet. Increase exercise. Monitor labs as needed. Continue statin Assessment & Plan (07/20/2021 6:09 PM SUPERVISOR CONTACT LENS): Insert lipid. Continue simvastatin 40 mg Gastroesophageal [...] loss Assessment & Plan (07/26/2022 7:53 PM SUPERVISOR CONTACT LENS): Continue PPI Assessment & Plan (01/25/2022 10:31 AM CDT): Discussed GERD at length including anatomy, behavioral changes (raise HOB, meal timings), dietary changes and medication options. Reviewed risks, benefits alternatives, side effects and proper use. Followup if sxs worsen or has hematochezia or hematemeis. Continue omeprazole 20. May increase to 40 if symptoms increase. Assessment & Plan (09/13/2021 12:57 PM SUPERVISOR CONTACT LENS): Continue PPI Assessment & Plan (07/20/2021 6:09 PM SUPERVISOR CONTACT LENS): Continue PPI Seasonal allergies 07/08/2021 Assessment & Plan (07/20/2021 6:09 PM SUPERVISOR CONTACT LENS): Continue current regimen of Zyrtec Flonase and albuterol p.r.n. Adenomatous polyp 07/08/2021 Overview (07/08/2021): 12/2020 -- Dr. Wang Assessment & Plan (07/20/2021 6:12 PM SUPERVISOR CONTACT LENS): Addendum is polyp from [address] Wang. Will request a report to determine follow-up but suspect will not be more than 3-5 years. Moderate episode of recurrent major depressive d isorder 09/01/2018 Assessment & Plan (01/09/2024 8:31 PM CDT): Continue per Psychiatry Dr. Hinojosa. Continue Paxil 30 Seroquel Assessment & Plan (08/04/2023 11:35 AM SUPERVISOR CONTACT LENS): Patient has depression symptoms and I suspect hypomania. She has been on Cymbalta and Abilify. Garden like the Abilify 10 was too much [...] . Assessment & Plan (06/01/2023 3:52 PM SUPERVISOR CONTACT LENS): Symptoms continue improve with the Cymbalta Abilify [...] thoughts Assessment & Plan (07/26/2022 7:53 PM SUPERVISOR CONTACT LENS): Continue Cymbalta 60 b.i.d. Assessment & Plan (04/19/2022 12:09 AM CDT): Increase BuSpar to 15 mg t.i.d.. Encouraged to call if has increased symptoms. Assessment & Plan (01/25/2022 12:32 PM CDT): Patient is under a lot of stress. She is currently homeless. Living with her mom but may end up in a jail and looking for her own home. Patient has been taking 60 mg b.i.d. with Cymbalta for a while. She states she felt the improvement by increasing. Advises is the max dose . Will start BuSpar 5 mg t.i.d. reviewed risks benefits alternatives side effects and proper use. Follow-up in 6 weeks to reassess Assessment & Plan (09/13/2021 12:58 PM SUPERVISOR CONTACT LENS): Continue Cymbalta 60. Will continue to monitor her depression symptoms. Assessment & Plan (07/20/2021 6:11 PM SUPERVISOR CONTACT LENS): Patient has done well with Cymbalta 30 [...] 06/25/2024 Assessment & Plan (06/04/2024 9:20 PM SUPERVISOR CONTACT LENS): Patient states she was treated for a [...] 12/27/202309/03 Assessment & Plan (06/04/2024 9:17 PM SUPERVISOR CONTACT LENS): Encouraged patient to restart all of her [...] 12/25/2024 Assessment & Plan (08/04/2023 11:36 AM SUPERVISOR CONTACT LENS): See depression Skin lesion 08/04/2023 12/25/2024 Assessment & Plan (08/04/2023 11:36 AM SUPERVISOR CONTACT LENS): Patient has a skin lesion that is pedunculated towards the right axilla more towards the chest wall. It looks very keratotic as though it may have been pulled and irritated. She states it will change colors at times. Recommend removal. Will get her scheduled for this procedure Tooth infection 06/01/2023 08/04/2023 Assessment & Plan (06/01/2023 3:52 PM SUPERVISOR CONTACT LENS): Stressed the importance of getting in with [...] provided. Assessment & Plan (08/04/2023 11:36 AM SUPERVISOR CONTACT LENS): Discussed the patient's BMI. The BMI is above average. BMI management plan is completed. BMI Follow-up includes: nutrition counseling, exercise counseling and education provided. Assessment & Plan (06/01/2023 3:53 PM SUPERVISOR CONTACT LENS): Discussed the patient's BMI. The BMI is [...] provided. Assessment & Plan (06/25/2024 10:53 PM SUPERVISOR CONTACT LENS): Discussed the patient's BMI. The BMI is above average. BMI management plan is completed. BMI Follow-up includes: nutrition counseling, exercise counseling and education provided. Assessment & Plan (05/26/2024 12:58 PM SUPERVISOR CONTACT LENS): Discussed the patient's BMI. The BMI is above average. BMI management plan is completed. BMI Follow-up includes: nutrition counseling, exercise counseling and education provided. Assessment & Plan (01/09/2024 8:33 PM CDT): Discussed the patient's BMI. The BMI is above average. BMI management plan is completed. BMI Follow-up includes: nutrition counseling, exercise counseling and education provided. Assessment & Plan (08/04/2023 11:36 AM SUPERVISOR CONTACT LENS): Discussed the patient's BMI. The BMI is above average. BMI management plan is completed. BMI Follow-up includes: nutrition counseling, exercise counseling and education provided. Assessment & Plan (06/01/2023 3:53 PM SUPERVISOR CONTACT LENS): Discussed the patient's BMI. The BMI is [...] Metamucil daily. States it is very expensive [id number]. Prescription sent. If she is difficulty filling [...] 10/04/2022 Assessment & Plan (07/26/2022 8:01 PM SUPERVISOR CONTACT LENS): Procedure is still a few months out. I have reviewed with patient the inherent risks associated with surgery, not limited to bleeding, infection, DVT, etc. She will need cardiac clearance from her institute director. She will need pre-op labs closer to the procedure. If normal/stable, to the best of my knowledge, there is not a medical contraindication for undergoing this elective surgery with general and/or regional anesthesia. Morbid obesity 07/14/2022 09/18/2022 Assessment & Plan (07/26/2022 7:56 PM SUPERVISOR CONTACT LENS): Obesity is unchanged. Discussed the patient's BMI. [...] 09/19/19 Assessment & Plan (07/14/2022 2:02 PM SUPERVISOR CONTACT LENS): Obesity is unchanged. Discussed the patient's BMI. The BMI is above average. BMI management plan is completed. BMI Follow-up includes: nutrition counseling, exercise counseling and education provided. Angina pectoris, unstable 03/31/2022 Overview (04/01/2022): Added automatically from request for surgery [id number] Other chest pain 01/25/2022 12/25/2024 Assessment & [...] 12/25/2024 Assessment & Plan (07/26/2022 7:55 PM SUPERVISOR CONTACT LENS): Patient with chronic diverticulitis. According to CT [...] 35.00-39.99. Assessment & Plan (08/19/2021 1:19 PM SUPERVISOR CONTACT LENS): Obesity is unchanged. Discussed the patient's BMI. The BMI is above average. BMI management plan is completed. BMI Follow-up includes: nutrition counseling, exercise counseling and education provided. Pre-diabetes 07/08/2021 12/25/2024 Assessment & Plan (06/25/2024 10:53 PM SUPERVISOR CONTACT LENS): Pre-diabetes/hyperglycemia is a precursor to Dm. Stressed importance of working on diet (decrease your simple sugars and one carbohydrate with each meal) and increase you exercise to achieve weight loss and this will help prevent you from progressing to diabetes. Assessment & Plan (08/04/2023 11:34 AM SUPERVISOR CONTACT LENS): Pre-diabetes/hyperglycemia is a precursor to Dm. Stressed [...] diabetes. Assessment & Plan (09/13/2021 12:56 PM SUPERVISOR CONTACT LENS): Pre-diabetes/hyperglycemia is a precursor to Dm. Stressed importance of working on diet (decrease your simple sugars and one carbohydrate with each meal) and increase you exercise to achieve weight loss and this will help prevent you from progressing to diabetes. Assessment & Plan (07/20/2021 6:09 PM SUPERVISOR CONTACT LENS): Pre-diabetes/hyperglycemia is a precursor to Dm. Stressed [...] recalls. Assessment & Plan (07/20/2021 6:10 PM SUPERVISOR CONTACT LENS): Patient has daytime sleepiness and significant snoring. She has never had a sleep study. Will refer for further evaluation. Joint pain 07/08/2021 04/10/2025 Assessment & Plan (07/20/2021 6:11 PM SUPERVISOR CONTACT LENS): Patient has had chronic joint pain. Has [...] daily Assessment & Plan (09/13/2021 12:58 PM SUPERVISOR CONTACT LENS): Bp is stable/in acceptable range for any co-morbidities. Encouraged to limit sodium intake and exercise for weight control. Continue losartan Assessment & Plan (07/20/2021 6:11 PM SUPERVISOR CONTACT LENS): Bp is stable/in acceptable range for any co-morbidities. Encouraged to limit sodium intake and exercise for weight control. Continue losartan. Will continue to monitor closely as it is elevated a little today but difficult to know if it is because of her 1st visit. Depression 11/28/2016 01/26/2023 Familial hypercholesterolemia 11/28/2016 09/24/2024 Assessment & Plan (06/04/2024 9:17 PM SUPERVISOR CONTACT LENS): Encouraged patient to restart all of her [...] Type Department Care Team Description 05/11/2025 Telephone [facility] [address] [place] [id number] Nolan Reece MD Sleep study authorization 05/09/2025 10:30 AM SUPERVISOR CONTACT LENS Office Visit [facility] Pulmonology [address] [place] [address] Nolan Reece MD YENIFER (obstructive sleep apnea) (Primary Dx); Personal history of tobacco use; Dyspnea on exertion 05/02/2025 Telephone [facility] Family Medicine [address] [place] [address] Luisa Villeda PA 04/17/2025 10:18 AM CDT Anesthesia Event [facility] OR [address] [place] [id number] Alfie Babb MD White, Kalvin L., 04/17/2025 9:20 AM CDT - 04/17/2025 11:45 AM CDT Surgery [facility] OR [address] [place] [address] [id number] Daniel العراقي MD ROBOTIC ASSISTED LAPAROSCOPIC INCISIONAL HERNIA REPAIR WITH MESH, ROBOTIC LYSIS OF ADHESIONS 04/17/2025 6:09 AM CDT - 04/18/2025 4:40 PM CDT Hospital Encounter [facility] 4 Med Surg [facility] [place] [address] Daniel العراقي MD Gaspe Mudiyanselage, Prabhjot Pinto MD COPD exacerbation (HCC) (Primary Dx) Discharge Disposition: Discharge to home or self care 04/10/2025 3:55 PM CDT - 04/10/2025 11:59 PM CDT Hospital Encounter [facility] [address] [place] [id number] Chronic cough Discharge Disposition: Discharge to home or self care 04/10/2025 3:45 PM CDT Lab [facility] [address] [place] [id number] Pain of foot, unspecified laterality 04/10/2025 Results Follow-Up [address] [place] [phone] Luisa Villeda PA Uric acid, XR Chest Pa Lateral 2 Views 04/05/2025 1:30 PM CDT Office Visit [address] [place] [phone] Luisa Villeda PA Umbilical hernia without obstruction and without gangrene (Primary Dx); Encounter for pre-operative examination; Atrial flutter by electrocardiogram ([facility]); Controlled type 2 diabetes mellitus without complication, without long-term current use of insulin; Hypertension associated with diabetes ([facility]); Type 2 diabetes mellitus with hyperlipidemia ([facility]); Drug-induced myopathy; YENIFER on CPAP; Chronic bilateral low back pain without sciatica; Low serum vitamin B12; Pain of foot, unspecified laterality; Chronic cough; Cigarette smoker; Mouth ulcers; Moderate episode of recurrent major depressive disorder ([facility]); History of colon resection; History of drug abuse in remission ([facility]); Morbid obesity ([facility]); BMI 40.0-44.9, adult (HCC) 03/29/2025 12:41 PM CDT - 03/29/2025 6:00 PM CDT Emergency [address] [place] [address] Tom Back MD Harper, Theodore Roosevelt, MD Paresthesia (Primary Dx); Nonintractable headache, unspecified chronicity pattern, unspecified headache type; Chest pain, unspecified type Discharge Disposition: Discharge to home or self care 03/29/2025 9:30 AM CDT Office Visit [facility] [address] [place] [address] [address] [place] [address] Luisa Villeda PA Other chest pain (Primary Dx); Type 2 diabetes mellitus with hyperlipidemia (HCC) 03/15/2025 Telephone [facility] [address] [place] [address] Luisa Villeda PA from Last [...] drink = 0.6 oz pur e alcohol) [facility] Utilities Answer Date Recorded In the past 12 months has e Down, gas, oil, or water [employer] threatened to shut off services in your [...] often do you attend chur ch or christian services? Never 12/20/2023 Do you belong to any clubs o r organizations such as religious groups, unions, fraternal or athletic groups, or [...] place to sleep or slept in a jail (including now)? No 08/27/2022 PHQ-9 Answer Date [...] any time in the past 12 m [facility], were you homeless or living in a jail (including now)? No 12/20/2023 AUDIT-C Answer Date [...] on file Legal Sex Female 2:19 AM SUPERVISOR CONTACT LENS Gender Identity Not on file Sexual Orientation Not on file Obstetrics History Para Term AB IAB SAB Ectopic Multiple Livin g Live Births 3 3 3 Date Outcome GA Total Labor Labor/2nd/3rd Weight Sex Type Anes PTL Jina A1 A5 Name Clin Term Term Term Last Filed Vital Signs Vital Sign Reading Time Taken Comments Blood Pressure 98/73 05/09/2025 10:19 AM SUPERVISOR CONTACT LENS Pulse 92 05/09/2025 10:19 AM SUPERVISOR CONTACT LENS Temperature 36.2 C (97.1 F) 05/09/2025 10:19 AM SUPERVISOR CONTACT LENS Respiratory Rate 18 05/09/2025 10:19 AM SUPERVISOR CONTACT LENS Oxygen Saturation 94% 05/09/2025 10:19 AM SUPERVISOR CONTACT LENS Inhaled Oxygen Concentration - - Weight 116.1 kg (256 lb) 05/09/2025 10:19 AM SUPERVISOR CONTACT LENS Height 165.1 cm (5' 5) 05/09/2025 10:19 AM SUPERVISOR CONTACT LENS Body Mass Index 42.6 05/09/2025 10:19 AM SUPERVISOR CONTACT LENS Plan of Treatment Upcoming Encounters Date Type Department Care Team (Late st Contact Info) Description 06/05/2025 8:00 AM SUPERVISOR CONTACT LENS Hospital Encounter [facility] [address] [place] [id number] Paula Lugo MD [address] [place] [address] 06/05/2025 8:00 AM SUPERVISOR CONTACT LENS - 06/05/2025 8:30 AM SUPERVISOR CONTACT LENS Surgery [facility] [address] [place] [phone] Paula Lugo MD [address] [place] [id number] COLONOSCOPY Scheduled Procedures Name Priority Associated Diagnoses Date/Ti me COLONOSCOPY hx of polyps 06/05/2025 8:00 AM SUPERVISOR CONTACT LENS Health Maintenance Due Date Last Done Comments [...] 04/27/2029 04/27/2019 Medical Devices Implanted Type Area Firestopper Technician Device Identifier Shelf Expiration Date Model / Serial / Lot [employer]/C R Bard Mesh Surgical Hernia Synthetic Oval Ventralight 6x8in Polypropylene [id number] - [id number] Implanted:Qty: 1 on 04/17/2025 by Daniel العراقي MD at [facility] Mesh Left: Abdomen [employer]/C R Bard [id number] 09/01/2026 [id number] / / [id number] [employer] Angio-Seal Vip 6fr Closere Device [id number] - [id number] Implanted:Qty: 1 on 04/01/2022 by Naren Mendoza MD at [facility] [employer] 02/01/2023 [id number] / / [id number] Description:Angio seal from Cardiac cath- takes [...] DEVICE Routine 04/17/2025 1 :20 PM CDT FL AN PROCEDURE PLACEHOLDER Routine 04/17/2025 10:53 AM CDT FL AN ELECTIVE ENDOTRACHEAL AIRWAY Routine 04/17/2025 10:53 [...] - 199 mg/dL Comment:Testing performed by : [address] [id number] Glucose comment 1 RN/MD Notified [facility] Comment:Testing performed by : [address] [id number] Blood 04/18/2025 12:0 2 PM CDT 04/18/2025 12:02 PM CDT us Daniel العراقي MD LAB POCT ORDERABLES - DEVICE Final Result Performing Organization Address [facility] de Phone Number [address] [place] [address] * (ABNORMAL) POCT glucose (04/18/2025 7:51 AM CDT) Glucose, POC 218(H) 70 - 199 mg/dL Comment:Testing performed by : [address] [id number] Glucose comment 1 RN/MD Notified [facility] Comment:Testing performed by : [address] [id number] Blood 04/18/2025 7:51 AM CDT 04/18/2025 7:51 AM CDT us Daniel العراقي MD LAB POCT ORDERABLES - DEVICE Final Result Performing Organization Address [facility] Co de Phone Number [address] [employer] [address] * XR Chest Pa Lateral 2 Views [...] Swapnil Berrios M.D. KR: LETICIA Report ID: [id number] Reading Location: [id number] Procedure Note Swapnil Berrios MD - 04/18/2025 [...] Swapnil Berrios M.D. KR: LETICIA Report ID: [id number] Reading Location: [id number] Anaupcindy Nicole MD IMG XR FL OCEDURES Final Result * (ABNORMAL) POCT glucose (04/17/2025 10:02 PM CDT) Glucose, POC 250(H) 70 - 199 mg/dL Comment:Testing performed by : [address] [address] Blood 04/17/2025 10:0 2 PM CDT 04/17/2025 10:02 PM CDT Daniel العراقي MD LAB POCT ORDERABLES - DEVICE Final Result Performing Organization Address [facility] Co de Phone Number [address] [place] [address] * (ABNORMAL) POCT glucose (04/17/2025 8:33 PM CDT) Glucose, POC 225(H) 70 - 199 mg/dL Comment:Testing performed by : [address] [address] Blood 04/17/2025 8:33 PM CDT 04/17/2025 8:33 PM CDT us Daniel العراقي MD LAB POCT ORDERABLES - DEVICE Final Result Performing Organization Address [facility] Co de Phone Number [address] [place] [address] * ABO / Rh Confirmation Testing (04/17/2025 8:22 PM CDT) ABO/Rh Confirmation O Positive [facility]HB Comment:Testing performed by : [address] [address] Blood 04/17/2025 8:22 PM CDT 04/17/2025 8:24 PM CDT Prabhjot Nicole MD LAB BLOOD ORDERABLES Final Result [facility] [address] [facility] Department [place] [address] MH * POCT glucose (04/17/2025 7:12 PM CDT) Glucose, POC 179 70 - 199 mg/dL Comment:Testing performed by : [facility], [address] [place] [address]., [address] Blood 04/17/2025 7:12 PM CDT 04/17/2025 7:12 PM CDT us Daniel العراقي MD LAB POCT ORDERABLES - DEVICE Final Result [facility] [address] [facility] [place] [address] * eGFR (04/17/2025 6:08 PM CDT) Pathologist [facility] eGFR 88 >=60 mL/min/1. 73 m2 Comment: [...] was last reviewed 2021. Testing performed by: [facility], [address] [place] [address]., [address] Blood 04/17/2025 6:08 PM CDT 04/17/2025 6:41 PM CDT us Nilupa Sewwandi Gaspe Mudiyanselage MD LAB BLOOD ORDERABLES Final Result [facility] [address] [facility] Department [place] [address] * (ABNORMAL) Differential, auto (04/17/2025 6:08 PM CDT) Neutrophil abs 13.08(H) 1.50 - 6.50 K/cumm Comment:Testing performed by : [address] [address] Imm gran abs 0.08 0.00 - 0.10 K/cumm SYED Comment:Testing performed by : [address] [address] Lymphocyte abs 1.05 0.80 - 3.30 K/cumm [facility] Comment:Testing performed by : [address] [address] Monocyte abs 0.33 0.20 - 0.80 K/cumm [facility] Comment:Testing performed by : [address] [address] Eosinophil abs 0.01 0.00 - 0.50 K/cumm SYED Comment:Testing performed by : [address] [address] Basophil abs 0.02 0.00 - 0.10 K/cumm [facility]ED Comment:Testing performed by : [address] [address] Neutrophil pct 89.8 % [facility] Comment: Interpretive Data Percent cell count reference ranges are not reported, since discordance with absolute values may lead to misinterpretation of CBC data. Current Interpretive Data was last revised on 2017. Testing performed by: [address] [address] Imm gran pct 0.5 % [facility] Comment: Interpretive Data Percent cell count reference ranges are not reported, since discordance with absolute values may lead to misinterpretation of CBC data. Current Interpretive Data was last revised on 2017. Testing performed by: [address] [place]., [address] Lymphocyte pct 7.2 % [facility] Comment: Interpretive Data Percent cell count reference ranges are not reported, since discordance with absolute values may lead to misinterpretation of CBC data. Current Interpretive Data was last revised on 2017. Testing performed by: [facility], [address] [place] [address]., [address] Monocyte pct 2.3 % [facility] Comment: Interpretive Data Percent cell count reference ranges are not reported, since discordance with absolute values may lead to misinterpretation of CBC data. Current Interpretive Data was last revised on 2017. Testing performed by: [address] [address] Eosinophil pct 0.1 % [facility] Comment: Interpretive Data Percent cell count reference ranges are not reported, since discordance with absolute values may lead to misinterpretation of CBC data. Current Interpretive Data was last revised on 2017. Testing performed by: [address] [address] Basophil pct 0.1 % [facility] Comment: Interpretive Data Percent cell count reference ranges are not reported, since discordance with absolute values may lead to misinterpretation of CBC data. Current Interpretive Data was last revised on 2017. Testing performed by: [address] [address] Blood 04/17/2025 6:08 PM CDT 04/17/2025 6:42 PM CDT us Prabhjot Nicole MD LAB BLOOD ORDERABLES Final Result [facility] [address] [facility] Department [place] [address] * Pro B-type natriuretic peptide [...] Last Revised Date: 2018. Testing performed by: [address] [address] Blood 04/17/2025 6:08 PM CDT 04/17/2025 6:41 PM CDT Prabhjot Nicole MD LAB BLOOD ORDERABLES Final Result [facility] [address] [facility] Department [place] [address] * (ABNORMAL) CBC with auto differential (04/17/2025 6:08 PM CDT) Pathologist [facility] WBC 14.57(H) 3.80 - 9.90 K/cumm Comment:Testing performed by : [address] [address] Hgb 13.4 11.9 - 15.5 g/dL [facility] Comment:Testing performed by : [address], [address] Hct 41.3 35.6 - 45.5 % [facility] Comment:Testing performed by : [address], [address] Plt 196 150 - 400 K/cumm SYED Comment:Testing performed by : [address], [address] MPV 13.0(H) 9.1 - 12.3 fL [facility] Comment:Testing performed by : [address], [address] RBC 4.60 3.90 - 5.20 M/cumm [facility] Comment:Testing performed by : [address], [address] MCV 89.8 81.3 - 96.4 fL [facility] Comment:Testing performed by : [address], [address] MCH 29.1 27.1 - 33.3 pg [facility] Comment:Testing performed by : [address], [address] MCHC 32.4 32.3 - 35.7 g/dL [facility] Comment:Testing performed by : [address], [address] RDW CV 12.6 11.1 - 14.9 % [facility] Comment:Testing performed by : [address], [address] RDW SD 41.4 35.7 - 48.1 fL [facility] Comment:Testing performed by : [address], [address] NRBC abs 0.00 0.00 - 0.01 K/cumm [facility] Comment:Testing performed by : [address], [address] Blood 04/17/2025 6:08 PM CDT 04/17/2025 6:42 PM CDT us Nilupa Sewwandi Gaspe Mudiyanselage MD LAB BLOOD ORDERABLES Final Result [address] [address] * ABO/Rh (04/17/2025 6:08 PM CDT) Pathologist [facility] ABO/Rh O Positive Comment:Testing performed by : [address] [address] Blood 04/17/2025 6:08 PM CDT 04/17/2025 6:41 PM CDT Narrative [facility] - 04/17/2025 7:02 PM CDT Has the patient had Daratumumab or Isatuximab in the past 6 months?->Unknown Prabhjot Nicole MD LAB BLOOD BANK TEST ORDERABLES Final Result Performing Organization Address [facility] Co de Phone Number [address] [address] * Antibody screen (04/17/2025 6:08 PM CDT) Pathologist [facility] Jeanie, indirect, Gel Interpretation Negative ABSC Comment:Testing performed by : [address] [address] Blood 04/17/2025 6:08 PM CDT 04/17/2025 6:41 PM CDT Narrative [facility] - 04/17/2025 7:17 PM CDT Has the patient had Daratumumab or Isatuximab in the past 6 months?->Unknown Prabhjot Nicole MD LAB BLOOD BANK TEST ORDERABLES Final Result Performing Organization Address City/[facility]/ZIP Co de Phone Number [address] [address] * (ABNORMAL) Hemoglobin A1c (04/17/2025 6:08 PM CDT) Pathologist [facility] Hgb A1C 6.8(H) 4.0 - 5.6 % Comment:Testing performed by : [address] [address] Estimated Average Glucose 148 mg/dL [facility] Comment: The ADA recommends reporting an estimated Average Glucose (eAG) with all Hemoglobin A1c results using the equation derived from a study of 507 normal and diabetic adults. Minority populations were underrepresented and children were not included. (Diabetes Care 31:2640-6460, 2008). The eAG is not equivalent to a fasting glucose. Testing performed by: [address] [address] Blood 04/17/2025 6:08 PM CDT 04/17/2025 6:42 PM CDT us Daniel العراقي MD LAB BLOOD ORDERABLES Final R esult [place] [address] [facility] Department [place] [address] * Comprehensive metabolic panel (04/17/2025 6:08 PM CDT) [facility] Sodium 135 135 - 145 mmol/L Comment:Testing performed by : [address] [address] Potassium, pl 4.3 3.3 - 4.9 mmol/L [facility] Comment:Testing performed by : [address] [address] Chloride 98 97 - 110 mmol/L [facility] Comment:Testing performed by : [address] [address] CO2 22 22 - 32 mmol/L [facility] Comment:Testing performed by : [address] [address] Anion gap 15 2 - 15 mmol/L [facility] Comment:Testing performed by : [address] [address] BUN 16 6 - 25 mg/dL [facility] Comment:Testing performed by : [address] [address] Creatinine 0.80 0.60 - 1.10 mg/dL [facility] Comment:Testing performed by : [address] [address] Glucose 196 70 - 199 mg/dL [facility] Comment: Interpretive Data Fasting glucose >/= 126 [...] was last revised 2022. Testing performed by: [address] [address] Calcium 9.4 8.5 - 10.3 mg/dL [facility] Comment:Testing performed by : [address] [address] Bilirubin, total 0.3 0.1 - 1.2 mg/dL [facility] Comment:Testing performed by : [address] [address] Protein, pl 7.6 6.5 - 8.5 g/dL [facility] Comment:Testing performed by : [address] [address] Albumin 4.4 3.5 - 5.0 g/dL [facility] Comment:Testing performed by : [address] [address] Alk phos 89 40 - 130 Units/L [facility] Comment:Testing performed by : [address] [address] ALT 21 7 - 45 Units/L [facility] Comment:Testing performed by : [address] [address] AST 31 10 - 45 Units/L [facility] Comment:Testing performed by : [address] [address] Blood 04/17/2025 6:08 PM CDT 04/17/2025 6:41 PM CDT us Anaolaf Blair Nicole MD LAB BLOOD ORDERABLES Final Result [facility] [address] [facility] Department [place] [address] * XR Chest 1 View (04/17/2025 5:55 [...] Eugene Orona M.D. LC: JAGDEEP Report ID: [id number] Reading Location: [id number] Procedure Note Ramona Orona MD - 04/17/2025 [...] Eugene Orona M.D. LC: JAGDEEP Report ID: [id number] Reading Location: [place] [address] us Alfie Babb MD IMG XR PROCEDURES Final Resul t * POCT glucose (04/17/2025 1:20 PM CDT) [facility] Glucose, POC 172 70 - 199 mg/dL Comment:Testing performed by : [facility], [address] [place] [address]., [address] Glucose comment 1 RN/MD Notified SYED Comment:Testing performed by : [facility], [address] [place] [address]., [address] Blood 04/17/2025 1:20 PM CDT 04/17/2025 1:20 PM CDT us Daniel العراقي MD LAB POCT ORDERABLES - DEVICE Final Result [facility] [address] [facility] Department [place] [address] * FL AN ELECTIVE ENDOTRACHEAL AIRWAY, FL AN PROCEDURE PLACEHOLDER (04/17/2025 10:53 AM CDT) Narrative Edilson Escobar CRNA - 04/17/2025 10:53 AM CDT Edilson Escobar CRNA 04/17/2025 10:54 AM Airway Patient location: OR Urgency: elective Date/time: 04/17/2025 10:25 AM Indications for airway management: anesthesia Difficult airway: no Staff: Supervising provider: Alfie Babb MD Placed by: STUDENT [employer] DEAN: Edilson Escobar CRNA Emergent airway documentation: Risks [...] Dolores Draper M.D. TW T: Report ID: [id number] Reading Location: [place] [address] Procedure Note Dolores Draper MD - 04/11/2025 [...] Dolores Draper M.D. TW T: Report ID: [id number] Reading Location: [id number] us Luisa VALDIVIA IMG XR PROCEDURES Final Re sult * Uric acid (04/10/2025 3:50 PM CDT) Uric acid 5.9 2.5 - 7.0 mg/dL Blood 04/10/2025 3:50 PM CDT 04/10/2025 4:11 PM CDT Luisa VALDIVIA LAB BLOOD ORDERABLES Final Result [facility] Department [place] [address] * MRI Brain WO Contrast (03/29/2025 5:33 [...] Macario Mendez D.O. AP T: Report ID: [id number] Reading Location: [place] [address] Procedure Note Macario Mendez, DO - 03/29/2025 EXAM DESCRIPTION: MRI BRAIN WO CONTRAST REASON FOR STUDY: Transient ischemic attack (TIA) Transient ischemic attack (TIA) TECHNIQUE: Multiplanar imaging includes non-contrasted T1, T2, FLAIR, and diffusion with ADC map sequences. Additional sequence(s) sensitive [employer] products. Images stored on PACS. COMPARISON: CT [...] Macario Mendez D.O. AP T: Report ID: [id number] Reading Location: [place] [address] us Re[facility] SO IMG MRI PROCEDURES Final Result * Drugs of Abuse Screen, Urine without Confirmation (03/29/2025 3:14 PM CDT) [facility] Amphetamine, ur Not Detected CutOff 500ng/mL Comment: Interpretive Data - Amphetamines: Samples containing greater than 500 ng/mL d-methamphetamine or other cross-reacting amphetamine compounds are reported as positive. Amphetamine immunoassays are subject to significant false positive rates due to cross-reactivity of non-amphetamine drugs. Confirmatory testing required for definitive results. Current Interpretive Data was last reviewed 2023. Barbiturates, ur Not Detected CutOff 200ng/mL [facility] Comment: Interpretive Data - Barbiturates: Samples containing greater than 200 ng/mL secobarbital or other cross-reacting barbiturate compounds are reported as positive. False positive and false negative results are possible. Confirmatory testing required for definitive results. Current Interpretive Data was last reviewed 2023. Benzodiazepines, ur Not Detected CutOff 100ng/mL [facility] Comment: Interpretive Data - Benzodiazepines: Samples containing greater than 100 ng/mL nordiazepam or other cross-reacting compounds are reported as positive. False positive and false negative results are possible. Confirmatory testing required for definitive results. Current Interpretive Data was last reviewed 2023. Cannabinoids, ur Not Detected CutOff 50 ng/mL [facility] Comment: Interpretive Data - Cannabinoids: Samples containing greater than 50 ng/mL delta-9 THC -COOH or other cross- reacting compounds are reported as positive. False positive and false negative results are possible. Confirmatory testing required for definitive results. Current Interpretive Data was last reviewed 2023. Cocaine, ur Not Detected CutOff 150ng/mL [facility] Comment: Interpretive Data - Cocaine: Samples containing greater than 150 ng/mL benzoylecgonine or other cross- reacting compounds are reported as positive. False positive and false negative results are possible. Confirmatory testing required for definitive results. Current Interpretive Data was last reviewed 2023. Fentanyl, Ur Not Detected CutOff 5 ng/mL [facility] Comment: Interpretive Data - Fentanyl: Samples containing greater than 5 ng/mL norfentanyl, fentanyl, or other cross-reacting fentanyl compounds are reported as positive. False positive and false negative results are possible. Confirmatory testing required for definitive results. Current Interpretive Data was last reviewed 2023. Methadone, ur Not Detected CutOff 300ng/mL [facility] Comment: Interpretive Data - Methadone: Samples containing [...] PM CDT 03/29/2025 3:18 PM CDT Narrative [facility] - 03/29/2025 4:07 PM CDT Drug of Abuse screening is performed by immunoassay for medical purposes only. This is not to be used for Pain Management purposes. us Rehab [facility] SO LAB URINE ORDERABLES Final Resu lt [facility] [address] [facility] Department [place] [address] * CASEY screen w/rflx LEONARDA+dsDNA [...] last revised on 2020. Testing performed by: [facility], [address] [facility], [place]., [address] Blood 03/29/2025 1:57 PM CDT 03/29/2025 5:32 PM CDT us Alfie Patterson MD LAB BLOOD ORDERABLES Final Result Performing Organization Address City/[facility] Hospital/ZIP Co de Phone Number [address] [place] [address] * Troponin T high-sensitivity 2-hour (03/29/2025 1:57 PM CDT) Trop T hs 8 <=14 ng/L Comment: Interpretive Data For further hscTnT resources including the diagnostic algorithm and an aid in interpretation, copy and paste this link: https://nrl.testcatalog.org/show/hsTrop Current Interpretive Data last revised 2020. Trop T hs delta 1 ng/L [facility] Trop T hs interp Insignificant [facility] Blood 03/29/2025 1:57 PM CDT 03/29/2025 2:01 PM CDT us Amy VALDIVIA LAB BLOOD ORDERABLES Final Re sult Performing Organization Address City/[facility]/ZIP Co de Phone Number [address] [employer] [place], [place] [id number] * Erythrocyte sedimentation rate (03/29/2025 1:57 PM CDT) [facility] Erythrocyte sedimentation rate 12 1 - 30 mm/hr Blood 03/29/2025 1:57 PM CDT 03/29/2025 2:01 PM CDT Alfie Patterson MD LAB BLOOD ORDERABLES Final Result Performing Organization Address [facility] de Phone Number [address] [address] * TSH (03/29/2025 1:57 PM CDT) [facility] Thyroid Stimulating Hormone 2.18 0.30 - 4.20 mcIUnit/mL Blood 03/29/2025 1:57 PM CDT 03/29/2025 2:01 PM CDT Alfie Patterson MD LAB BLOOD ORDERABLES Final Result Performing Organization Address [facility] de Phone Number [address] [address] * (ABNORMAL) Vitamin B1 (03/29/2025 1:57 PM CDT) [facility] Thiamine (Vit B1) 203(H) 70 - 180 nmol/L [facility] Comment: ADDITIONAL INFORMATION This test was developed and its performance characteristics determined by [facility] in a manner consistent with CLIA requirements. This test has not been cleared or approved by the U.S. Food and Drug Administration. Test Performed by: [facility] - [address] [address] Door Liner Helper: Maverick Tello Ph.D.; CLIA# [id number] Blood 03/29/2025 1:57 PM CDT 03/29/2025 2:01 PM CDT Narrative [facility] - 03/31/2025 1:18 PM CDT received in lab; 03/30/2025 13:32:12 CDT [id number] Alfie Patterson MD LAB BLOOD ORDERABLES Final Result Performing Organization Address [facility] de Phone Number [facility] [address] [address] [facility] * Vitamin B6 (03/29/2025 1:57 PM CDT) Pathologist [facility] Pyridoxal phosphate (Vit B6) 6 5 - 50 mcg/L [facility] Comment: ADDITIONAL INFORMATION This test was developed and its performance characteristics determined by [facility] in a manner consistent with CLIA requirements. This test has not been cleared or approved by the U.S. Food and Drug Administration. Test Performed by: [facility] [place] [address] Door Liner Helper: Maverick Tello Ph.D.; CLIA# [id number] Blood 03/29/2025 1:57 PM CDT 03/29/2025 2:00 PM CDT Narrative [facility] - 04/04/2025 12:39 AM CDT received in lab; 03/30/2025 13:32:12 CDT [id number] Alfie Patterson MD LAB BLOOD ORDERABLES Final Result Performing Organization Address [facility] Co de Phone Number NATHALIE[address] [place] [address] [facility] * Vitamin B12 (03/29/2025 1:57 PM CDT) [facility] Vitamin B12 392 230 - 1,250 pg/mL Blood 03/29/2025 1:57 PM CDT 03/29/2025 2:01 PM CDT Alfie Patterson MD LAB BLOOD ORDERABLES Final Result Performing Organization Address [facility]/ZIP Co de Phone Number [facility] [address] [facility] [place] [address] * POCT hCG, urine (03/29/2025 12:39 PM CDT) HCG, ur, POC Negative Negative Lot Number [id number] QC Backgroud Clear Acceptable QC Control Line Acceptable Urine 03/29/2025 12:3 9 PM CDT Re[facility] SO POINT OF CARE TEST ORDERABLES F inal Result * (ABNORMAL) Urinalysis reflex to microscopic and culture Urine (03/29/2025 12:37 PM CDT) Color, ur Yellow Yellow Clarity, ur Clear Clear [facility] Specific gravity, ur 1.018 1.003 - 1.030 [facility] pH, urine 5.5 [facility] Comment: Interpretive Data U rine pH is affected by diet, medications, systemic acid-base disturbances, and renal tubular function. pH may affect urinary stone formation. For example, urine pH below 6.0 may help reduce the tendency for calcium phosphate stones and pH greater than 6.0 may reduce the tendency for uric acid stone formation. Source: [facility] Current Interpretive Data was last revised on 2017 Protein, ur ql Negative Negative [facility] Glucose, ur ql Negative Negative [facility] Ketones, ur Negative Negative [facility] Bilirubin, ur Negative Negative [facility] Blood, ur Negative Negative [facility] Urobilinogen, ur <2.0 <2.0 mg/dL [facility] Nitrite, ur Negative Negative [facility] Leukocyte esterase, ur 1+(A) Negative [facility] UA reflex comment Reflex to microscopic UA will be performed. [facility] Urine 03/29/2025 12:3 7 PM CDT 03/29/2025 12:[address] [facility] LAB MICROBIOLOGY - GENERAL ORDE CHAIM Final Result Performing Organization Address City/[facility] Hospital/ZIP Co de Phone Number [facility] [address] [facility] [place] [address] * (ABNORMAL) Urinalysis, microscopic only (03/29/2025 12:37 PM CDT) WBC, ur 0-5 0 - 5 /HPF RBC, ur 0-2 0 - 2 /HPF [facility] Epithelial cells, squamous, ur 1-5 0 - 5 /HPF [facility] Mucous, ur Present(A) [facility] Culture Reflex Comment Reflex conditions for urine culture (WBC >10) not met. [facility] Urine 03/29/2025 12:3 7 PM CDT 03/29/2025 12:43 PM CDT Amy VALDIVIA LAB URINE ORDERABLES Final Re sult [facility] [address] [facility] Department [place] [address] * ECG 12 lead (03/29/2025 12:32 PM CDT) Ventricular Rate EKG/Min 74 BPM [facility] Atrial Rate 74 BPM [facility] FL-Interval (MSEC) 156 ms [facility] QRS-Interval (MSEC) 72 ms [facility] QT-Interval (MSEC) 416 ms [facility] QTc 461 ms [facility] P Bigler 36 degrees [facility] R Bigler -44 degrees [facility] T Bigler 18 degrees [facility] Diagnosis Normal sinus rhythm Possible Left atrial enlargement Left axis deviation Cannot rule out Anterior infarct (cited on or before 18-OCT-2023) Abnormal ECG When compared with ECG of 15-FEB-2024 13:17, No significant change was found Confirmed by KOLE HELLER M.D. ([id number]) on 03/29/2025 2:35:09 PM [facility] 03/29/2025 12:3 2 PM CDT 03/29/2025 2:35 PM CDT us Tom Back MD ECG ORDERABLES Final Result Performing Organization Address City/[facility] Hospital/ZIP Co de Phone Number [facility] * CT Head WO Contrast (03/29/2025 12:29 [...] signed by Joesph GILLIAM T: Report ID: [id number] Reading Location: [id number] Procedure Note Joesph Anderson MD - 03/29/2025 [...] Joesph Anderson M.D. RB T: Report ID: [id number] Reading Location: [place] [address] [facility] [address] PROCEDURES Final Result * Troponin T high-sensitivity series (baseline, 2hr, 4hr, 6hr) (03/29/2025 12:19 PM CDT) Pathologist [facility] Trop T hs 7 <=14 ng/L Comment: Interpretive Data For further hscTnT resources including the diagnostic algorithm and an aid in interpretation, copy and paste this link: https://nrl.testcatalog.org/show/hsTrop Current Interpretive Data last revised 2020. Blood 03/29/2025 12:1 9 PM CDT 03/29/2025 12:27 PM CDT [facility] LAB BLOOD ORDERABLES Final [facility] [address] [facility] Department [place] [address] * eGFR (03/29/2025 12:19 PM [...] VALDIVIA LAB BLOOD ORDERABLES Final Re sult [facility] [address] [facility] Department [place] [address] * (ABNORMAL) Differential, auto (03/29/2025 12:19 PM CDT) Neutrophil abs 6.02 1.50 - 6.50 K/cumm Imm gran abs 0.07 0.00 - 0.10 K/cumm [facility] Lymphocyte abs 3.66(H) 0.80 - 3.30 K/cumm [facility] Monocyte abs 0.97(H) 0.20 - 0.80 K/cumm [facility] Eosinophil abs 0.47 0.00 - 0.50 K/cumm [facility] Basophil abs 0.05 0.00 - 0.10 K/cumm [facility] Neutrophil pct 53.6 % [facility] Comment: Interpretive Data Percent cell count reference ranges are not reported, since discordance with absolute values may lead to misinterpretation of CBC data. Current Interpretive Data was last revised on 2017. Imm gran pct 0.6 % [facility] Comment: Interpretive Data Percent cell count reference ranges are not reported, since discordance with absolute values may lead to misinterpretation of CBC data. Current Interpretive Data was last revised on 2017. Lymphocyte pct 32.6 % [facility] Comment: Interpretive Data Percent cell count reference ranges are not reported, since discordance with absolute values may lead to misinterpretation of CBC data. Current Interpretive Data was last revised on 2017. Monocyte pct 8.6 % [facility] Comment: Interpretive Data Percent cell count reference ranges are not reported, since discordance with absolute values may lead to misinterpretation of CBC data. Current Interpretive Data was last revised on 2017. Eosinophil pct 4.2 % [facility] Comment: Interpretive Data Percent cell count reference ranges are not reported, since discordance with absolute values may lead to misinterpretation of CBC data. Current Interpretive Data was last revised on 2017. Basophil pct 0.4 % [facility] Comment: Interpretive Data Percent cell count reference ranges are not reported, since discordance with absolute values may lead to misinterpretation of CBC data. Current Interpretive Data was last revised on 2017. Blood 03/29/2025 12:1 9 PM CDT 03/29/2025 12:27 PM CDT us [facility] LAB BLOOD ORDERABLES Final Resu lt [place] [id number] [facility] Department [place] [address] * (ABNORMAL) CBC with auto differential (03/29/2025 12:19 PM CDT) WBC 11.24(H) 3.80 - 9.90 K/cumm Hgb 14.4 11.9 - 15.5 g/dL [facility] Hct 44.4 35.6 - 45.5 % [facility] Plt 226 150 - 400 K/cumm [facility] MPV 12.4(H) 9.1 - 12.3 fL [facility] RBC 4.86 3.90 - 5.20 M/cumm [facility] MCV 91.4 81.3 - 96.4 fL [facility] MCH 29.6 27.1 - 33.3 pg [facility] MCHC 32.4 32.3 - 35.7 g/dL [facility] RDW CV 12.8 11.1 - 14.9 % [facility] RDW SD 42.3 35.7 - 48.1 fL [facility] NRBC abs 0.00 0.00 - 0.01 K/cumm SYED ALVARADO Blood Venous blood specimen / Unknown 03/29/2025 12:19 PM CDT 03/29/2025 12:27 PM CDT [facility]ative [facility] 03/29/[facility] 12:30 PM CDT [facility] BLOOD ORDERABLES Final Resu lt Performing Organization Address [facility] Co de Phone Number SYED [address] [address] * aPTT (03/29/2025 12:19 PM CDT) aPTT 23 22 - 37 sec Comment: Interpretive data aPTT test has not been evaluated for monitoring heparin therapy. The anti-Xa is the preferred test. Current interpretive data was last revised on 2019. Blood Venous blood specimen / Unknown 03/29/2025 12:19 PM CDT 03/29/2025 12:27 PM CDT Narrative [facility] - 03/29/2025 1:12 PM CDT [facility] LAB BLOOD ORDERABLES Final Resu lt Performing Organization Address [facility] de Phone Number NATHALIE[address] [address] * Protime-INR (03/29/2025 12:19 PM CDT) PT [...] LAB BLOOD ORDERABLES Final Resu lt [facility]ED [address] [facility] Department [place] [address] * Comprehensive metabolic panel (03/29/2025 12:19 PM CDT) Sodium 137 135 - 145 mmol/L Potassium, pl 4.3 3.3 - 4.9 mmol/L [facility] Chloride 104 97 - 110 mmol/L [facility] CO2 22 22 - 32 mmol/L [facility] Anion gap 11 2 - 15 mmol/L [facility] BUN 12 6 - 25 mg/dL [facility] Creatinine 0.81 0.60 - 1.10 mg/dL [facility] Glucose 98 70 - 199 mg/dL [facility] Comment: Interpretive Data Fasting glucose >/= 126 [...] 2022. Calcium 9.4 8.5 - 10.3 mg/dL [facility] Bilirubin, total 0.2 0.1 - 1.2 mg/dL [facility] Protein, pl 6.9 6.5 - 8.5 g/dL [facility] Albumin 4.0 3.5 - 5.0 g/dL [facility] Alk phos 85 40 - 130 Units/L [facility] ALT 15 7 - 45 Units/L [facility] AST 22 10 - 45 Units/L [facility] Blood Venous blood specimen / Unknown 03/29/2025 12:19 PM CDT 03/29/2025 12:27 PM CDT Narrative [facility] - 03/29/2025 1:00 PM CDT Potential Stroke Patient [facility] LAB BLOOD ORDERABLES Final Resu lt SYED [address] [facility] Department [place] [address] * (ABNORMAL) POCT hemoglobin A1c (03/29/2025 10:31 [...] Luisa VALDIVIA LAB URINE ORDERABLES Final Result [facility] [address] [address] [id number] * (ABNORMAL) POCT lipid panel (12/25/2024 8:25 [...] age 40, based on guidelines of the [employer] (ACR Practice Parameter for the Performance of Screening and Diagnostic Mammography) and [employer]. For women [...] Most Recently Relevant to Health Maintenance Insurance [facility] Advance Directives For more information, please contact: [phone] * Full Code (Latest Code Status on File) Date Activated Date Inactivated Comments 04/17/2025 6:15 PM 04/18/2025 8:46 PM * Full Code Date Activated Date Inactivated Comments 12/19/2023 10:54 PM 12/24/2023 7:09 PM * Full Code Date Activated Date Inactivated Comments 08/26/2022 11:57 AM 08/30/2022 2:01 PM * Full Code Date Activated Date Inactivated Comments 04/01/2022 3:52 PM 04/02/2022 6:26 PM Care Teams Sales Systems Engineer Relationship Specialty Start Date End Date Luisa Villeda PA [address] [facility] [address] [place] [address] PCP - General Internal Medicine 07/08/21 Daniel العراقي MD [address] [facility] [address] [place] [address] Consulting Physician General Surgery 04/17/25 Rafael Haynes MD [address] [place] [address] Referring Physician Cardiology 04/18/25
[2025-05-13 22:05] VITALS: BP 125/74; PULSE 91; RESP 16; O2SAT 96
== END 2025-05-13 22:08 | disposition home or self-care (01) ==
LOC: ANHED 21:54
PROVIDERS: Emergency Provider Student in an Organized Health Care Education/Training Program; PCP Physician Assistant
DX: K04.01 Reversible pulpitis (principal)
CPT/HCPCS: 96372; 99283; A9270; J1885